=== PATIENT | female | born 1950 | race Caucasian/White ===

== ENCOUNTER 2017-11-08 09:21 | Emergency (ER) | payer OTHER, SELFPAY ==
[2017-11-08 09:26] VITALS: BP 111/84; PULSE 68; RESP 16; TEMP 36.8; O2SAT 95
[2017-11-08] MEDS: Ibuprofen 400 MG TAB PO (09:30)
--- NOTE | 2017-11-08 09:32 | DI.REPORT_ITS ---
SYMPTOM/DIAGNOSIS: STRUCK EDGE OF CHAIR, INJURED RIGHT TOES/LATERAL FOOT RIGHT FOOT: There is a nondisplaced fracture of the proximal phalanx of the 5th toe. No additional fractures are seen. IMPRESSION: Nondisplaced fracture of the mid portion of the proximal phalanx of the 5th toe.
--- NOTE | 2017-11-08 09:36 | ED.GENADUL_ITS ---
Disposition Clinical Impression: Closed fracture of fifth toe of right foot Disposition: HOME Condition: Good Instructions: Toe Fracture (ED) Additional Instructions: Please f/u with Dr. Mullins within 4-6 weeks to assure fracture is healing properly. Sooner if pain and swelling unresolved. Referrals: Josef Mullins DPM [[facility] STAFF PHYSICIAN] - Forms: Work Release Medical Decision Making - Radiology Data Radiology results: report reviewed (Nondisplaced fracture of the mid portion of the proximal phalanx of the 5th toe. ), image reviewed (fracture of proximal phalanx fifth toe. ) - Medical Decision Making Plan to x-ray to evaluate for fracture patient does have history of osteopenia. Will medicate with Ibuprofen. Patient advised to ice and elevate. Patient and daughter apprised of xray impression. Nurse fitted for post op shoe and omar taped fifth toe to adjacent fourth toe. I provided work note for 72 hours to help facilitate plan of care of ice and elevation. Advised to use Ibuprofen for pain. F/U with Dr. Mullins in 4-6 weeks, sooner of symptoms worsen. - Differential Diagnosis contusion, fracture, sprain History of Present Illness - General Chief complaint: Orthopedic Stated complaint: BROKEN TOE? Time Seen by Provider: 11/08/17 09:32 Source: patient, RN notes reviewed Mode of arrival: ambulatory Limitations: no limitations - History of Present Illness Initial comments: 46 while at work she bumped her right pinky toe on the edge of a heavy chair. The force laterally spread the pinky toe causing pain. She physically had to return the fifth toe its normal alignment. Denies any injury. She did take Tylenol prior to arrival. - Related Data Omeprazole 40 mg PO DAILY 01/13/17 Citalopram Hydrobromide [Celexa] 40 mg PO DAILY #90 tab-cap 03/03/17 Estrogens,Conjugated Vag. Cr. [Premarin Vaginal Cream] 1 gm VG as directed #1 each 03/03/17 Ibuprofen 800 mg PO TID PRN #90 tab-cap 03/03/17 Ranitidine HCl [Zantac] 150 mg PO DAILY PRN #90 tab-cap 04/13/17 Clonazepam [Klonopin] 1 mg PO DAILY #30 tab-cap 09/16/17 Allergies Allergy/AdvReac Type Severity Reaction Status Date / Time fentanyl AdvReac Severe NAUSEA/VOMI Unverified 03/21/17 07:08 TING Review of Systems Constitutional: no symptoms reported Musculoskeletal: other (trauma and pain to right fifth toe) Neurological: denies: vertigo Past Medical History - Past Medical History Medical history: hyperlipidemia insomnia, osteopenia L hip, colon polyps Surgical history: other (colocoscopy) Psychiatric history: depression - Social History Alcohol use: none Drug use: none General Exam - General Limitations: no limitations General appearance: alert, in no apparent distress - Expanded Lower Extremity Exam Right Ankle exam: Present: normal inspection, full ROM. Absent: tenderness, swelling Foot/Toe exam: Present: normal inspection, full ROM, tenderness (right fifth toe ), ecchymosis. Absent: swelling, laceration, deformity, erythema, calcaneal tenderness, tenderness at base of 5th metatarsal, nail avulsion, subungual hematoma Neuro vascular tendon exam: Present: no vascular compromise Gait: observed and limited by pain - Neurological Exam Neurological exam: Present: alert, oriented X3. Absent: normal gait (altered from pain) - Psychiatric Psychiatric exam: Present: normal affect, normal mood - Skin Skin exam: Present: warm, dry, intact Course Vital Signs - 24 hr 11/08/17 09:26 Temperature 36.8 C Pulse 68 Respiratory 16 Rate Blood Pressure 111/84 Pulse Oximetry 95
== END 2017-11-08 10:13 | disposition home or self-care (01) ==
PROVIDERS: Emergency Provider Student in an Organized Health Care Education/Training Program; PCP Family Medicine
DX: S92.511A Displaced fracture of proximal phalanx of right lesser toe(s), initial encounter for closed fracture (principal); Y99.0 Civilian activity done for income or pay
CPT/HCPCS: 28510; 73630

== ENCOUNTER 2018-10-05 00:28 | Outpatient (CLI) | payer MEDICARE, OTHER, SELFPAY | END 2018-10-05 00:48 | PROVIDERS: PCP Family Medicine; Visit Provider Family Medicine | DX: R69 Illness, unspecified (principal) ==

== ENCOUNTER 2018-10-10 07:36 | Outpatient (CLI) | payer OTHER, MEDICARE, SELFPAY ==
[2018-10-10 08:06] LABS: HCT 40.5 % (36.0-46.0); HGB 13.3 g/dL (12.0-15.5); Mean Corp. HGB Concentration 32.8 g/dL (32.0-36.0); Mean Corpuscular Hemoglobin 32.2 pg (27.0-33.0); Mean Corpuscular Volume 98.1 fL (80-95); Mean Platelet Volume 10.2 fL (8.0-11.0); Platelet Count 268 x1000/uL (130-400); RBC 4.13 m/cumm (4.00-5.20); RBC Distribution Width 12.6 % (11.7-14.6); White Blood Cell Count 6.34 k/cumm (4.4-10.8)
[2018-10-10 09:15] LABS: ALT 22 U/L (12-78); AST 16 U/L (15-37); Albumin 3.6 g/dL (3.4-5.0); Alkaline Phosphatase 136 U/L (46-116); Anion Gap 9.9 mmol/L (3-11); BUN 19 mg/dL (7-18); Bilirubin, Total 0.2 mg/dL (0.2-1.0); CO2 26.1 mmol/L (21.0-32.0); CREATININE 1.01 mg/dL (0.55-1.02); Calcium 8.7 mg/dL (8.5-10.1); Calculated LDL 196 mg/dL; Chloride 107 mmol/L (98-107); Cholesterol 275 mg/dL (50-200); Estimated GFR 54.67 (mL/min/1.73m2); Glucose 110 mg/dL (70-100); HDL Cholesterol 62 mg/dL (40-60); Potassium 4.5 mmol/L (3.5-5.1); Sodium 143 mmol/L (136-145); Triglyceride 88 mg/dL (30-150)
== END 2018-10-10 07:56 ==
PROVIDERS: PCP Family Medicine; Visit Provider Family Medicine
DX: K21.9 Gastro-esophageal reflux disease without esophagitis (principal); E78.5 Hyperlipidemia, unspecified; F32.9 Major depressive disorder, single episode, unspecified
CPT/HCPCS: 36415; 80053; 80061; 83721; 85027

== ENCOUNTER 2018-10-18 01:03 | Outpatient (CLI) | payer OTHER, MEDICARE, SELFPAY ==
--- NOTE | 2018-10-18 07:17 | DI.MAMMO_ITS ---
SYMPTOMS/DIAGNOSIS: SCREENING, Z12.31 MAMMOGRAM: Mammograms were interpreted according to the usual protocol including computer analysis with CAD system, tomosynthesis and C view imaging. The breast tissue is of moderate radiodensity. There is no evidence of a mass. There are no suspicious calcifications and there has been no significant interval change when compared with prior images. SUMMARY: No evidence of malignancy, Category I, yearly screening mammography is recommended. Breast density Category B. SA ASSESSMENT OF FINDINGS: Negative. Category 1. Patient will receive a letter notifying them of these results. BI-RADS category B. There are scattered areas of fibroglandular density.
== END 2018-10-18 01:23 ==
PROVIDERS: PCP Family Medicine; Visit Provider Family Medicine
DX: Z12.31 Encounter for screening mammogram for malignant neoplasm of breast (principal)
CPT/HCPCS: 77063; 77067

== ENCOUNTER 2018-10-31 01:36 | Outpatient (CLI) | payer OTHER, MEDICARE, SELFPAY ==
--- NOTE | 2018-10-31 15:59 | DI.RAD_ITS ---
SYMPTOMS/DIAGNOSIS: OSTEOPENIA F/U, M85.88 DEXA SCAN WITH ANGELINA: Comparison is made with exams from 2005 through 2008. The ANGELINA image shows no evidence of compression fractures. The bone mineral density measurements of the lumbar spine correspond to a total T score of -2.4, in the osteopenic range. This is not significantly changed from 2008. This represents a 7.3% decrease when compared with 2005. The bone mineral density measurements of the left hip correspond to a total T score of -2.4 and a femoral neck T score of -2.8, in the osteoporotic range. This represents a 4.1% decrease when compared with 2008 and a 9.2% decrease when compared with 2005. The bone mineral density measurements of the left forearm correspond to a total T score of -1.8 and a T score of the distal third of -2.1. This represents a 10.7% decrease when compared with 2008. The forearm was not evaluated in 2005 or 2006. IMPRESSION: Overall osteopenia of the lumbar spine. Osteopenia of the left forearm. Osteoporosis of the left hip.
== END 2018-10-31 01:56 ==
PROVIDERS: PCP Family Medicine; Visit Provider Family Medicine
DX: M85.88 Other specified disorders of bone density and structure, other site (principal); M81.8 Other osteoporosis without current pathological fracture
CPT/HCPCS: 77080

== ENCOUNTER 2019-01-19 00:49 | Outpatient (CLI) | payer OTHER, MEDICARE, SELFPAY ==
[2019-01-19 08:17] LABS: Hemoglobin A1C 5.9 % (4.5-6.2)
[2019-01-19 09:13] LABS: ALT 28 U/L (14-59); AST 16 U/L (15-37); Albumin 3.7 g/dL (3.4-5.0); Alkaline Phosphatase 118 U/L (46-116); Bilirubin, Total 0.5 mg/dL (0.2-1.0); GGT 17 U/L (5-55); TSH (W/Ref FT4) 3.31 uIU/mL (0.36-3.74)
[2019-01-19 09:33] LABS: Bilirubin, Direct 0.12 mg/dL (0.00-0.20)
[2019-01-19 09:48] LABS: ESR 27 mm/hr (0-30)
[2019-01-22 06:33] LABS: Vitamin D 25 Total 18.4 ng/ml (30-100)
== END 2019-01-19 01:09 ==
PROVIDERS: PCP Family Medicine; Visit Provider Family Medicine
DX: R53.83 Other fatigue (principal); R53.81 Other malaise; M81.0 Age-related osteoporosis without current pathological fracture
CPT/HCPCS: 36415; 80076; 82306; 85652; 82977; 83036; 84443

== ENCOUNTER 2019-07-30 02:09 | Outpatient (CLI) | payer OTHER, MEDICARE, SELFPAY ==
[2019-07-30 07:43] LABS: Abs Immature Grans 0.02 k/cumm (0.0-0.09); Absolute Basophil Count 0.03 k/cumm (0.0-0.2); Absolute Eosinophil Count 0.18 k/cumm (0.0-0.7); Absolute Lymphocyte Count 2.77 k/cumm (1.2-3.4); Absolute Monocyte Count 0.55 k/cumm (0.11-0.7); Absolute Neutrophil Count 3.69 k/cumm (1.2-6.7); Basophils % 0.4; Eosinophils % 2.5; HGB 12.7 g/dL (12.0-15.5); Immature Grans % 0.3 %; Lymphocytes % 38.3; Mean Corp. HGB Concentration 32.6 g/dL (32.0-36.0); Mean Corpuscular Hemoglobin 31.7 pg (27.0-33.0); Mean Corpuscular Volume 97.3 fL (80-95); Mean Platelet Volume 10.1 fL (8.0-11.0); Monocytes % 7.6; Neutrophils % 50.9; Platelet Count 267 x1000/uL (130-400); RBC 4.01 m/cumm (4.00-5.20); RBC Distribution Width 12.7 % (11.7-14.6); White Blood Cell Count 7.24 k/cumm (4.4-10.8)
[2019-07-30 08:48] LABS: ALT 32 U/L (14-59); AST 22 U/L (15-37); Albumin 3.6 g/dL (3.4-5.0); Alkaline Phosphatase 111 U/L (46-116); Anion Gap 5.8 mmol/L (3-11); BUN 20 mg/dL (7-18); Bilirubin, Total 0.3 mg/dL (0.2-1.0); CO2 31.2 mmol/L (21.0-32.0); CREATININE 1.18 mg/dL (0.55-1.02); Calcium 8.5 mg/dL (8.5-10.1); Calculated LDL 84 mg/dL (<100); Chloride 104 mmol/L (98-107); Cholesterol 178 mg/dL (<200); Estimated GFR 45.55 (mL/min/1.73m2); Glucose 115 mg/dL (74-106); HDL Cholesterol 80 mg/dL (40-60); Potassium 4.3 mmol/L (3.5-5.1); Sodium 141 mmol/L (136-145); TSH (W/Ref FT4) 3.75 uIU/mL (0.36-3.74); Triglyceride 71 mg/dL (<150)
[2019-07-30 08:57] LABS: Vitamin D 25 Total 46.9 ng/ml (30-100)
[2019-07-30 09:05] LABS: FREE T4 0.83 ng/dL (0.76-1.46)
== END 2019-07-30 02:29 ==
PROVIDERS: PCP Family Medicine; Visit Provider Family Medicine
DX: E55.9 Vitamin D deficiency, unspecified (principal); R53.83 Other fatigue; K21.9 Gastro-esophageal reflux disease without esophagitis; M81.0 Age-related osteoporosis without current pathological fracture
CPT/HCPCS: 36415; 80053; 80061; 82306; 84439; 84443; 85025

== ENCOUNTER 2019-09-14 01:49 | Outpatient (CLI) | payer OTHER, MEDICARE, SELFPAY ==
[2019-09-14 13:21] LABS: Abs Immature Grans 0.02 k/cumm (0.0-0.09); Absolute Basophil Count 0.02 k/cumm (0.0-0.2); Absolute Eosinophil Count 0.11 k/cumm (0.0-0.7); Absolute Lymphocyte Count 2.87 k/cumm (1.2-3.4); Absolute Monocyte Count 0.73 k/cumm (0.11-0.7); Absolute Neutrophil Count 4.24 k/cumm (1.2-6.7); Basophils % 0.3; Eosinophils % 1.4; HCT 36.8 % (36.0-46.0); HGB 12.3 g/dL (12.0-15.5); Immature Grans % 0.3 %; Lymphocytes % 35.9; Mean Corp. HGB Concentration 33.4 g/dL (32.0-36.0); Mean Corpuscular Hemoglobin 32.4 pg (27.0-33.0); Mean Corpuscular Volume 96.8 fL (80-95); Mean Platelet Volume 10.1 fL (8.0-11.0); Monocytes % 9.1; Platelet Count 254 x1000/uL (130-400); RBC Distribution Width 12.4 % (11.7-14.6); White Blood Cell Count 7.99 k/cumm (4.4-10.8)
[2019-09-14 14:17] LABS: ALT 20 U/L (14-59); AST 15 U/L (15-37); Albumin 3.6 g/dL (3.4-5.0); Alkaline Phosphatase 100 U/L (46-116); Anion Gap 9.4 mmol/L (3-11); BUN 16 mg/dL (7-18); Bilirubin, Total 0.3 mg/dL (0.2-1.0); CO2 25.6 mmol/L (21.0-32.0); CREATININE 1.09 mg/dL (0.55-1.02); Calcium 8.9 mg/dL (8.5-10.1); Chloride 105 mmol/L (98-107); Estimated GFR 49.92 (mL/min/1.73m2); Glucose 97 mg/dL (74-106); Potassium 4.1 mmol/L (3.5-5.1); Sodium 140 mmol/L (136-145); TSH 2.12 uIU/mL (0.36-3.74); Total Protein 6.9 g/dL (6.4-8.2)
== END 2019-09-14 02:09 ==
PROVIDERS: PCP Family Medicine; Visit Provider Family Medicine
DX: R73.9 Hyperglycemia, unspecified (principal); R10.9 Unspecified abdominal pain; R53.83 Other fatigue
CPT/HCPCS: 36415; 80053; 83036; 84443; 85025

== ENCOUNTER 2019-10-23 00:54 | Outpatient (CLI) | payer MEDICARE, OTHER, SELFPAY ==
--- NOTE | 2019-10-23 06:00 | DI.MAMMO_ITS ---
EXAM: MG MAMMO SCREENING CLINICAL HISTORY: screening,Z12.31,FAMILY H/O BREAST CA,Z80.3 TECHNIQUE: Mammograms were interpreted according to the usual protocol including computer analysis w [employer] system, tomosynthesis and C-view imaging. COMPARISON: FINDINGS: The breasts are moderate density symmetrical distribution of fibroglandular tissue. No dominant mass or clumped microcalcification is identified in either breast. Current examination is compared with previous examinations including September 2018 and there has been no gross interval change in appearance c omparison with previous studies. IMPRESSION: No specific evidence of malignancy at this time. Routine screening examinations are suggested at yea rly intervals due to the family history of breast carcinoma. BI-RADS Category 1 - Negative Breast Density - Category B - Scattered areas of fibroglandular density
== END 2019-10-23 01:14 ==
PROVIDERS: PCP Family Medicine; Visit Provider Family Medicine
DX: Z12.31 Encounter for screening mammogram for malignant neoplasm of breast (principal); Z80.3 Family history of malignant neoplasm of breast
CPT/HCPCS: 77063; 77067

== ENCOUNTER 2021-01-14 02:41 | Outpatient (CLI) | payer OTHER, MEDICARE, SELFPAY ==
--- NOTE | 2021-01-14 06:45 | DI.MAMMO_ITS ---
Exam(s) MAMMO SCREENING EXAM: MAMMO SCREENING CLINICAL HISTORY: screening,z12.39. TECHNIQUE: Bilateral full field digital CC and MLO mammographic images were obtained with 3D tomosyn thesis and utilizing computer aided detection (CAD). COMPARISON: Prior mammograms dating back to 2010, the most recent being October 2019. FINDINGS: There are no new spiculated masses nor malignant appearing microcalcification groups. There is no significant architectural distortion nor skin thickening-retraction. IMPRESSION: No radiographic evidence of malignancy. BI-RADS Category 1 - Negative Breast Density - Category B - Scattered areas of fibroglandular density Breast density Category C or D implies that the patient has dense breast tissue. Dense breast tissue can make it harder to find cancer on a mammogram. Dense breast tissue is also associated with an incr eased risk of breast cancer. This information about the result of the mammogram report was provided to the patient to raise their awareness. Use this report when you speak with the patient about their risks for breast cancer, which includes their family history. At that time, you may recommend additional screening tests (Ultrasoun d or MRI) as these tests may add significant information. A negative radiographic report should not delay biopsy if a dominant or clinically suspicious mass is present. Up to ten percent of cancers are not identified on mammography. A negative report may reinforce clinical impression. Adenosis and dense breasts may obscure an underlying neoplasm. False positive reports average 6 to 10%. Patient will receive a letter notifying them of these results.
== END 2021-01-14 03:01 ==
PROVIDERS: PCP Family Medicine; Visit Provider Family Medicine
DX: Z12.31 Encounter for screening mammogram for malignant neoplasm of breast (principal)
CPT/HCPCS: 77063; 77067

== ENCOUNTER 2021-01-19 02:47 | Outpatient (CLI) | payer OTHER, MEDICARE, SELFPAY ==
[2021-01-19 16:53] LABS: BUN 21 mg/dL (7-18); Calcium 9.5 mg/dL (8.5-10.1); Chloride 105 mmol/L (98-107); Estimated GFR 54.97 (mL/min/1.73m2); Glucose 110 mg/dL (74-106); Sodium 143 mmol/L (136-145)
[2021-01-19 17:03] LABS: Calculated LDL 77 mg/dL (<100); Cholesterol 192 mg/dL (<200); HDL Cholesterol 80 mg/dL (40-60); Triglyceride 175 mg/dL (<150)
== END 2021-01-19 02:48 | disposition home or self-care (01) ==
LOC: LBO 02:47
PROVIDERS: PCP Family Medicine; Visit Provider Family Medicine
DX: E78.5 Hyperlipidemia, unspecified (principal); R73.9 Hyperglycemia, unspecified; E66.9 Obesity, unspecified; I10 Essential (primary) hypertension
CPT/HCPCS: 36415; 80048; 80061; 83036

== ENCOUNTER 2021-10-02 07:09 | Day surgery (SDC) | payer OTHER, MEDICARE, SELFPAY ==
--- NOTE | 2021-10-01 18:37 | COLE_ITS ---
Colonoscopy Report Date of procedure: 10/02/21 Pre-op diagnosis general: +family hx CRC Post-op diagnosis procedure note: other (normal) Surgeon: Cynthia Thompson Anesthesia Type: General:No Airway Estimated blood loss (mL): 0 Pathology: none sent Complications: None Disposition: same day Prep: Miralax/Dulcolax Retraction Time: 8 Procedure Description: After informed consent was obtained the patient was taken to the procedure room and placed in a left decubitous position. Monitors were applied and a time out was done. The patients name, date of , procedure, allergies to medications and metal in their body was reviewed. The patient was then sedated. Once sedate d and comfortable a rectal exam was done. External exam was normal. Internal exam revealed a normal sphincter tone and no palpable masses. The scope was then introduced and retrofelexed. No internal hemorrhoids were identified. The scope was then advanced to the cecum w/out difficulty. The TI and appendiceal orifice were identified. The prep was BBPS III in otal of 9. The scope was then slowly retracted over 8 minutes back into the rectum. THere are no polyps/AVM's or diverticula visualized today. THe muscosa appears pink and healthy w/ a normal vascular pattern. The scope was removed and the patient was woken up and taken back to Same day surgery in stable condition. The patient tolerated the procedure well and there were no immediate complications. Follow up: The patient should follow up in 5 years ( provided she is still healthy for anaesthesia) unless they develop changes in bowel habits or other new gastrointestinal complaints.
--- NOTE | 2021-10-01 18:38 | PDOC.DSDIS_ITS ---
Discharge Plan Disposition Patient Disposition: HOME Condition: Good Discharge Details Reason For Visit: colon scope Attending Provider: Cynthia Thompson Primary Care Provider: Nadia Stanford Home Meds and New Rx's Prescriptions: No Action ibuprofen [Advil] 200 mg tablet 400 mg PO Q6H PRN clonazepam 1 mg tablet 1 mg PO BID PRN (Reason: anxiety) Qty: 60 2RF rosuvastatin 10 mg tablet 10 mg PO DAILY Qty: 90 3RF citalopram 40 mg tablet 40 mg PO HS pantoprazole 20 mg tablet,delayed release (DR/EC) 20 mg PO HS Discharge Instructions Additional Instructions: DSU Colonoscopy Post- Op Instructions Instructions for Everyone who is given Anesthesia: For your safety, please do the following for the next twenty-four (24) hours: *Do Not operate a motor vehicle (car, truck, motorcycle, etc.) *Do Not drink alcoholic beverages or use any recreational drugs for the first 24 hours or while taking pain medications. The medications in your body may have a reaction that can be dangerous. *Do Not make any important decisions or sign any important papers. Findings: normal Follow up: Repeat in 5 yrs time if still healthy for anethesia 1. No lifting over 20 pounds or strenuous activity for the first 24 hours after your procedure. After 24 hours there are no restrictions on your activity but you may feel fatigued for a few days. 2. After you arrive home you may have a light meal and return to your normal diet as you can tolerate it without feeling sick to your stomach. 3. You may have a bloated, gaseous feeling in your belly (abdomen) after a colonoscopy. Passing gas and belching will help. Walking or lying down on your left side with your knees flexed may relieve the discomfort. Call the office at [phone] (Office) or [phone] (Hospital) right away if you notice any of the following: a.Vomiting of blood or ?coffee ground stools?. b.Rectal bleeding 1Tbsp, blood clots or continuous bleeding. c.Severe belly (abdominal) pain. d.A hard distended belly (abdomen) and an inability to pass gas. 4. Please don?t expect to have a normal BM (bowel movement) for 2-3 days after your procedure. 5. If there are questions regarding the findings of your procedure, please contact your doctor 6. If you are unable to contact your doctor with a problem, contact the hospital at [phone]. 7. Continue all your regular medications unless directed otherwise. I understand the above instructions and have no questions. Signature of Patient or Adult Escort Name of Responsible Adult Escort Signature of Nurse Date/Time Activity:: See above Diet:: See above Discharge Orders Discharge Orders: Discharge Order (Routine); Ordered 10/01/21 Ordered By: Cynthia Thompson
[2021-10-02 07:21] VITALS: BP 133/74; PULSE 78; RESP 16; TEMP 36.6
--- NOTE | 2021-10-02 07:44 | ANES.PREOP_ITS ---
General Info Date of Service Date Performed: 10/02/21 Height: 5 ft 2 in Weight: 84.9 kg Body Mass Index (BMI): 34.2 Surgical Procedure: Operation Date: 10/02/21 08:20 Proposed Procedure Side Surgeon lennox Thompson, DO Meds Allergies and Home Medications Allergies Allergy/AdvReac Type Severity Reaction Status Date / Time fentanyl AdvReac Severe NAUSEA/VOMI Verified 10/02/21 07:18 TING Home Medication Medication Instructions Recorded clonazepam 1 mg tablet 1 mg PO BID PRN anxiety #60 tabs 06/24/21 ibuprofen 200 mg tablet (Advil) 400 mg PO Q6H PRN 09/11/21 rosuvastatin 10 mg tablet 10 mg PO DAILY #90 tabs 09/30/21 citalopram 40 mg tablet 40 mg PO HS 10/01/21 pantoprazole 20 mg tablet,delayed 20 mg PO HS 10/01/21 release Current Visit Medications: Current Medications Generic Name Dose Route Start Last Admin Trade Name Freq PRN Reason Stop Dose Admin Hyoscyamine Sulfate 0.125 mg 10/01/21 18:31 Hyoscyamine 0.125 Mg Sl/Oral/Chew SL DIRECTED PRN Ringer's Solution 1,000 mls @ 80 mls/hr 10/02/21 06:00 IV 10/31/21 23:59 [facility] IV Miscellaneous Supplies 1 each 10/02/21 06:00 Iv Access IV 10/31/21 23:59 DIRECTED MANUEL Ondansetron HCl 4 mg 10/01/21 18:31 Ondansetron 4 Mg/2 Ml Vial IVP Q4H PRN PRN Nausea / Vomiting Sodium Chloride 0 ml 10/02/21 06:00 Normal Saline Flush 10 Ml Syr IV 10/31/21 23:59 PRN PRN Sodium Chloride 0 ml 10/02/21 06:00 Normal Saline 10 Ml Vial IJ 10/31/21 23:59 DIRECTED PRN Sterile Water 0 ml 10/02/21 06:00 Water,Injection,Sterile 10 Ml Vial IJ 10/31/21 23:59 DIRECTED PRN PFSH Active Problems Active Problems: Problem Status Onset Code Family history of colon cancer Z80.0 Screening for colon cancer Z12.11 Medical History Medical History Abnormal glandular Papanicolaou smear of vagina (02/17/06) Chronic ulcerative proctitis Depressive disorder Edema (12/02/11) Family hx-breast malignancy Fatigue GERD (gastroesophageal reflux disease) History of tobacco use Hyperlipidemia Insomnia Joint pain Osteoporosis Polyp of colon Vitamin D deficiency Surgical History Surgical History Colonoscopy - MAC (12/11/10) 2013 Tobacco Smoking/Tobacco Use Status: Former Tobacco Use Second hand exposure: Yes Alcohol Alcohol Intake: current Alcohol intake frequency: a few times a month Alcohol type: beer, wine and hard liquor Substance Use Substance use: Never Substance use type: does not use Vital Signs and Lab Results Vital Signs Most Recent Vital Signs in EMR: Most Recent Vital Signs Temp Pulse Resp BP 36.6 C 78 16 133/74 10/02/21 07:21 10/02/21 07:21 10/02/21 07:21 10/02/21 07:21 Lab Results Blood Type / Crossmatch: No Data to Display Complete Blood Count: No Data to Display Complete Metabolic Panel: No Data to Display Liver Function Panel: No Data to Display Coagulation Panel: No Data to Display Cardiac Panel: No Data to Display Arterial Blood Gas: No Data to Display Venous Blood Gas: No Data to Display Pancreas Panel: No Data to Display Thyroid Panel: No Data to Display Infectious Disease: No Data to Display Blood Cultures: No Data to Display Toxicology Panel: No Data to Display Anesthesia Assessment and Plan Anesthesia History Personal History: No History of Anesthesia Complications Family History: No Family History of Anesthesia Complications Exercise Tolerance Exercise Tolerance: Metabolic Equivalents>4 Pertinent Negatives Pertinent Negatives: No Symptoms of GERD (Well controlled), No Major Cardiovascular Symptoms or Complaints, No Major Pulmonary Symptoms or Complaints and No History of CVA/TIA Cardiac & Pulmonary Exam Cardiac Exam: Normal S1/S2 Heart Sounds Pulmonary Exam: Clear Bilateral Breath Sounds Implantable Cardiac Device Does patient have a Pacemaker or an ICD?: No Airway Exam Known Difficult Airway: No Mallampati Class: 2 Mouth Opening: Normal (> 3cm) Thyromental Distance: Greater than 3 cm Neck Range of Motion: Full ROM Neck Circumference: Normal Teeth Condition: Normal Dentition ASA Classification ASA Score: ASA 2 Emergency Case?: No NPO Status NPO Status: NPO Clears >2 hours, Solids >8 hours Anesthesia Plan Resuscitation Status: Full Code Anesthesia Technique: General Anesthesia Airway Planned: Natural Airway Monitors Used: Standard Monitors
[2021-10-02] MEDS: Lactated Ringers 1,000 ML 80 ML IV (07:50)
[2021-10-02 08:30] VITALS: BMI 34.2
[2021-10-02 09:33] VITALS: BP 92/49; PULSE 86; RESP 14; TEMP 36.5; O2SAT 91
[2021-10-02 10:00] VITALS: BP 105/76; PULSE 65; RESP 14; TEMP 36.5; O2SAT 91
--- NOTE | 2021-10-02 10:05 | W.ANESPOSTOP ---
Postoperative Evaluation Date, Time and Location Date Performed: 10/02/21 Time Performed: 09:46 Patient Location: Day Surgery Unit Vital Signs Most Recent Imported Vital Signs: Most Recent Vital Signs Temp Pulse Resp BP Pulse Ox 36.5 C 65 14 105/76 91 L 10/02/21 10:00 10/02/21 10:00 10/02/21 10:00 10/02/21 10:00 10/02/21 10:00 Pain Score Most Recent Pain Score: Most Recent Pain Score Pain Level 0 10/02/21 10:00 Assessment Mental Status: Awake (Alert & Oriented to Patient Baseline) Airway and Respiratory Function: Patent airway with normal (patient baseline) respiratory exam Cardiovascular Function: Hemodynamically Stable Hydration Status: Adequately Hydrated Nausea & Vomiting: No Nausea or Vomiting Pain: Pt. Denies Any Pain Peripheral Nerve Block: Patient did not receive a nerve block
[2021-10-02 10:28] VITALS: BP 104/75; PULSE 66; RESP 16; TEMP 36.5; O2SAT 94
== END 2021-10-02 11:04 | disposition home or self-care (01) ==
LOC: SUR 07:10
PROVIDERS: PCP Family Medicine; Visit Provider Surgery
PROC: 0DJD8ZZ Inspection of Lower Intestinal Tract, Via Natural or Artificial Opening Endoscopic (ICD-10-PCS; CPT 45378; principal; 2021-10-02 08:15)
DX: Z12.11 Encounter for screening for malignant neoplasm of colon (principal); Z80.0 Family history of malignant neoplasm of digestive organs; E55.9 Vitamin D deficiency, unspecified; E78.5 Hyperlipidemia, unspecified
CPT/HCPCS: G0105

== ENCOUNTER 2022-01-12 02:35 | Outpatient (CLI) | payer OTHER, MEDICARE, SELFPAY ==
[2022-01-12 11:15] LABS: BUN 16 mg/dL (7-18); CREATININE 1.1 mg/dL (0.55-1.02); Calcium 9.2 mg/dL (8.5-10.1); Calculated LDL 133 mg/dL (<100); Chloride 105 mmol/L (98-107); Cholesterol 216 mg/dL (<200); Estimated GFR 54.06 (mL/min/1.73m2); Glucose 111 mg/dL (74-106); HDL Cholesterol 61 mg/dL (40-60); Sodium 140 mmol/L (136-145); TSH (W/Ref FT4) 2.35 uIU/mL (0.36-3.74); Triglyceride 113 mg/dL (<150); Vitamin B12 291 pg/mL (193-986)
[2022-01-13 10:22] LABS: Vitamin D 25 Total 39.4 ng/mL (30-100)
== END 2022-01-12 02:36 | disposition home or self-care (01) ==
LOC: LBO 02:36
PROVIDERS: PCP Family Medicine; Visit Provider Family Medicine
DX: M81.0 Age-related osteoporosis without current pathological fracture (principal); E03.9 Hypothyroidism, unspecified; G62.9 Polyneuropathy, unspecified; E66.9 Obesity, unspecified; I10 Essential (primary) hypertension; E78.2 Mixed hyperlipidemia; Z13.6 Encounter for screening for cardiovascular disorders
CPT/HCPCS: 36415; 80048; 80061; 82306; 82607; 84443

== ENCOUNTER → 2022-02-12 00:07 | Outpatient (CLI) | payer OTHER, MEDICARE, SELFPAY ==
--- NOTE | 2022-02-12 13:11 | DI.DEXA_ITS ---
Exam(s) XR DEXA BONE DENSITY W/WO ANGELINA EXAM: XR DEXA BONE DENSITY W/WO ANGELINA CLINICAL HISTORY: osteoporosis M81.0 SCREENING TECHNIQUE: COMPARISON: No exams were available for comparison FINDINGS: DEXA scan was performed according to the usual protocol. Please see the accompanying data sheets. Findings for left hip scanning are T-score -2.0 with left femoral neck T-score -2.7. Prior examinati on of October 2018 showed left hip T-score -2.4. Lumbar spine scanning shows T-score -2.5, prior examination of October 2018 showed lumbar T-score -2. 4. Left forearm scanning shows T-score -2.4, prior examination of 2018 showed left forearm T-score -2.1. IMPRESSION: The measurements are consistent with osteoporosis according to the WHO criteria. The lateral vertebr al scanogram shows no evidence of a vertebral compression fracture. RADIATION DOSE DELIVERED: Total DLP
== END ==
PROVIDERS: PCP Family Medicine; Visit Provider Family Medicine
DX: M81.0 Age-related osteoporosis without current pathological fracture (principal); Z13.820 Encounter for screening for osteoporosis
CPT/HCPCS: 77080

== ENCOUNTER 2022-11-11 20:20 | Emergency (ER) | payer OTHER, MEDICARE, SELFPAY ==
--- NOTE | 2022-11-11 20:15 | DI.RAD_ITS ---
Exam(s) XR KNEE RT 3V AP,LAT,TIMBO EXAM: XR KNEE RT 3V AP,LAT,TIMBO CLINICAL HISTORY: fall, pain at prox fib and lateral tib plat. TECHNIQUE: 2D digital imaging was performed of the right knee. Three views obtained. AP, lateral an d PA tunnel views were obtained. COMPARISON: No priors for comparison. FINDINGS: BONES: No acute fracture is present. No bony destructive lesion is seen. JOINTS: The knee is normally aligned. No joint effusion is seen. SOFT TISSUE: Normal. IMPRESSION: Unremarkable radiographs of the right knee. DATA REPOSITORY: RADIATION DOSE DELIVERED:
--- NOTE | 2022-11-11 20:15 | DI.RAD_ITS ---
Exam(s) XR CHEST 2V PA LATERAL EXAM: XR CHEST 2V PA LATERAL CLINICAL HISTORY: fall, right lateral rib pain at rib 6-8 TECHNIQUE: 2D digital imaging was performed of the chest. Two images were obtained. PA and lateral views were obtained. COMPARISON: CR CHEST 2 VIEWS PA,LAT from 11/25/2011 FINDINGS: MEDIASTINUM: Normal. HEART: Normal. PULMONARY VASCULATURE: Normal. LUNGS: Clear. PLEURAL SPACE: No pleural effusion or pneumothorax. BONE:Within normal limits for the patient's age. OTHER FINDINGS:Normal. IMPRESSION: 1. No acute pulmonary findings. 2. If there are continued concerns for rib fracture, a dedicated right rib examination may be obtaine d. DATA REPOSITORY: RADIATION DOSE DELIVERED:
--- NOTE | 2022-11-11 20:15 | DI.CT_ITS ---
Exam(s) CT HEAD FACIAL WO EXAM: CT HEAD FACIAL WO CLINICAL HISTORY: fall, hit right orbit, r/o bleed. TECHNIQUE: Imaging Protocol: Axial computed tomography images with coronal and sagittal reformatted images were created and reviewed COMPARISON: CT HEAD WITHOUT CONTRAST from 08/06/2009 FINDINGS: CT Head: Ventricles and Extra axial spaces: Normal in size and morphology for the patient's age. Hemorrhage: None. Cerebral parenchyma: Normal. Midline shift: None. Brainstem/Cerebellum: Normal. Calvarium: Normal. Visualized Paranasal sinuses/Mastoids: Clear. Soft Tissues: Unremarkable. CT Face: Facial Bones: No definite fracture is noted in facial bones. Sinuses and Mastoids: Unremarkable. Globes, extraocular muscles, optic nerves and retrobulbar fat: Normal. Upper aerodigestive tract: Normal. Mandible and bilateral temporomandibular joints: Normal. Soft tissues: Normal. IMPRESSION: 1. No acute intracranial process. 2. No acute facial fracture. RADIATION DOSE DELIVERED: 1,511.04mGy.cm Total DLP DATA REPOSITORY: All CT scans at this facility are submitted to the National Radiology Data Registry (NRDR) Dose Index Registry (DIR) with the [employer] (A[employer]). RADIATION OPTIMIZATION: All CT scans at this facility use at least one of these dose optimization te chniques: automated exposure control; mA and/or kV adjustment per patient size (includes targeted exa ms where dose is matched to clinical indication); or iterative reconstruction.
[2022-11-11 20:25] VITALS: BP 127/75; PULSE 87; RESP 15; TEMP 36.6; O2SAT 96
--- NOTE | 2022-11-11 20:29 | DI.RAD_ITS ---
Exam(s) XR FOOT RT COMPLETE EXAM: XR FOOT RT COMPLETE CLINICAL HISTORY: tenderness at 3-5th MTP joint after fall. TECHNIQUE: 2D digital imaging was performed of the right foot. Three images were obtained. AP, obl ique and lateral views were obtained. COMPARISON: CR RIGHT FOOT COMPLETE from 11/08/2017 FINDINGS: BONES: There is an acute mildly displaced fracture through the distal metadiaphyseal junction of the proximal phalanx of the 4th toe. There is also cortical irregularity through the midshaft of the pro ximal phalanx of the 5th toe concerning for nondisplaced fracture. No bony destructive lesion is see n. JOINTS: No dislocation present. SOFT TISSUE: There is soft tissue swelling of the distal foot. IMPRESSION: 1. Acute mildly displaced fracture involving the proximal phalanx of the 4th toe. 2. Question of a nondisplaced fracture involving the proximal phalanx of the 5th toe. DATA REPOSITORY: RADIATION DOSE DELIVERED:
[2022-11-11] MEDS: Acetaminophen 500 MG TAB 1000 MG PO (20:35)
--- NOTE | 2022-11-11 20:35 | W.ED.GENAD ---
Discharge Plan Disposition Patient Disposition: Home Condition: Good Discharge Details Chief Complaint: Fall/Non TraumaCriteria Clinical Impression: Fracture of right toe Primary Care Provider: Nadia Stanford ED Provider: Suresh Rob Home Meds and New Rx's Prescriptions: No Action ibuprofen [Advil] 200 mg tablet 400 mg PO Q6H PRN acyclovir 400 mg tablet 400 mg PO BID Qty: 180 3RF citalopram 40 mg tablet 40 mg PO HS Qty: 90 3RF pantoprazole 20 mg tablet,delayed release (DR/EC) 20 mg PO HS Qty: 90 3RF rosuvastatin 10 mg tablet 10 mg PO DAILY Qty: 90 3RF clonazepam 1 mg tablet 1 mg PO QHS Qty: 30 2RF Discharge Instructions Instructions: Toe Fracture (ED) Additional Instructions: At this time your ribs are bruised, and your knee is certainly bruised. You also do have a small fracture in your fourth toe on the right foot. This will heal with time. Keep it omar taped for the next 2 to 3 weeks. Please use the walking boot to help with healing process for the next 1 to 2 weeks. Take Tylenol and Motrin as needed for pain. If you notice any worsening of your symptoms, or any new symptoms such as vomiting, diarrhea, fever, chills, shortness of breath, chest pain, numbness, weakness, or fainting , please return immediately to the emergency department for reevaluation. Please follow up with your primary care provider as soon as possible for reassessment and reevaluation. As always, it was a pleasure participating in your medical care today. Referrals: Nadia Stanford MD [Primary Care Provider] - Medical Decision Making 72-year-old female with a past medical history of osteoporosis, high cholesterol, GERD, chronic mild peripheral edema, who presents today for evaluation after a fall. Patient states that she was walking on a cement walkway when her sandal folded in on itself and she subsequently fell forward and tripped. She hit her right brow, right chest, right knee, and right toes. She has pain in all the subsequent areas. She denies any loss of consciousness. No numbness or tingling. No weakness otherwise. She is not on any blood thinners. No other complaints at this time. Symptoms are made worse with movement. Improved by nothing. Exam demonstrates bruising and tenderness over the right brow, bruising and tenderness of the right knee and right MCP joints of the third fourth and fifth digits on the right foot. No midline cervical thoracic lumbar spine tenderness. No other tenderness otherwise aside from mild right-sided rib tenderness. No other concerning abnormalities. We will get radiographic imaging of the following areas for evaluation of potential osseous injury. Will give Tylenol, monitor closely and reassess. 9:[address] scan of the head knee chest No acute process. X-ray of the foot was initially read as negative. I did have concern for fracture of the fourth toe, did contact radiology and they concur with this point on the reassessment and addendum. Patient's toe was omar taped, she was given a walking boot for home. Recommend continued NSAIDs at home. Discussed red flags for which to return. I have extensively reviewed the treatment plan and discharge instructions with the patient and their family. I have addressed all patient concerns at this time. The patient and family was made aware of what symptoms to monitor for that would warrant a return to the emergency department. Discussed the plan with the patient and family, they demonstrate verbal understanding and agreement with our assessment and plan at this time. The documentation in this chart was dictated using [employer] dictation software. Please excuse any dictation errors. FINDINGS: Brain: Moderate volume loss No hemorrhage. Unremarkable white matter. No mass effect. Cerebral ventricles: No ventriculomegaly. Paranasal sinuses: Visualized sinuses are unremarkable. No fluid levels. Mastoid air cells: Visualized mastoid air cells are well aerated. Bones/joints: Unremarkable. No acute fracture. Soft tissues: Unremarkable. IMPRESSION: No acute intracranial abnormality FINDINGS: Orbital cavities: Orbits are normal. Globes are unremarkable. Bones/joints: No acute fracture. Paranasal sinuses: Normal. No air-fluid levels. Soft tissues: Unremarkable. IMPRESSION: No acute findings. Thank you for allowing us to participate in the care of your patient. Dictated and Authenticated by: Mg Tavarez MD 11/11/2022 8:57 PM Eastern Time ([place] & [place]) FINDINGS: Lungs: Unremarkable. No consolidation. Pleural spaces: Unremarkable. No pleural effusion. No pneumothorax. Heart/Mediastinum: Unremarkable. No cardiomegaly. Bones/joints: Unremarkable. IMPRESSION: No acute findings. Thank you for allowing us to participate in the care of your patient. Dictated and Authenticated by: Mg Tavarez MD 11/11/2022 8:57 PM Eastern Time ([place] & [place]) FINDINGS: Bones/joints: No acute fracture or dislocation Soft tissues: Normal. IMPRESSION: No acute findings. Thank you for allowing us to participate in the care of your patient. Dictated and Authenticated by: Mg Tavarez MD 11/11/2022 8:56 PM Eastern Time ([place] & [place]) Addendum created by Mg Tavarez MD on 11/11/2022 9:13 PM Eastern Time ([place] & [place]): Mild swelling of the 4th toe. Mild irregularity/fracture of the distal 4th proximal phalanx on the oblique view The findings were verbally communicated via telephone conference with SURESH ROB at 9:13 PM EDT on 11/11/2022. The findings were acknowledged and understood. Initial Report created on 11/11/2022 9:00 PM Eastern Time ([place] & [place]): PROCEDURE INFORMATION: Exam: XR Right Foot Exam date and time: 11/11/2022 8:56 PM Age: 72 years old Clinical indication: Injury or trauma; Fall; Blunt trauma; Foot; Right; Additional info: Tenderness at 3- 5th mtp joint after fall TECHNIQUE: Imaging protocol: Radiologic exam of the right foot. Views: 3 or more views. COMPARISON: CR RIGHT FOOT COMPLETE 11/08/2017 9:37 AM FINDINGS: Bones/joints: Chronic ossicle adjacent to the cuboid. No acute fracture or dislocation. Soft tissues: Normal. IMPRESSION: No acute findings. Thank you for allowing us to participate in the care of your patient. HPI General Date/Time Provider Initiated Documentation: 11/11/22 20:23. HPI Narrative: 72-year-old female with a past medical history of osteoporosis, high cholesterol, GERD, chronic mild peripheral edema, who presents today for evaluation after a fall. Patient states that she was walking on a cement walkway when her sandal folded in on itself and she subsequently fell forward and tripped. She hit her right brow, right chest, right knee, and right toes. She has pain in all the subsequent areas. She denies any loss of consciousness. No numbness or tingling. No weakness otherwise. She is not on any blood thinners. No other complaints at this time. Symptoms are made worse with movement. Improved by nothing. Related Data Home Medications Medication Instructions Recorded Confirmed ibuprofen 200 mg tablet (Advil) 400 mg PO Q6H PRN 09/11/21 08/06/22 citalopram 40 mg tablet 40 mg PO HS #90 tabs 01/01/22 08/06/22 pantoprazole 20 mg tablet,delayed 20 mg PO HS #90 tabs 01/01/22 08/06/22 release rosuvastatin 10 mg tablet 10 mg PO DAILY #90 tabs 05/06/22 08/06/22 acyclovir 400 mg tablet 400 mg PO BID #180 tabs 08/06/22 08/06/22 clonazepam 1 mg tablet 1 mg PO QHS anxiety #30 tabs 10/14/22 Previous Rx's Medication Instructions Recorded citalopram 40 mg tablet 40 mg PO HS #90 tabs 01/01/22 pantoprazole 20 mg tablet,delayed 20 mg PO HS #90 tabs 01/01/22 release rosuvastatin 10 mg tablet 10 mg PO DAILY #90 tabs 05/06/22 acyclovir 400 mg tablet 400 mg PO BID #180 tabs 08/06/22 clonazepam 1 mg tablet 1 mg PO QHS anxiety #30 tabs 10/14/22 Allergies Allergy/AdvReac Type Severity Reaction Status Date / Time fentanyl AdvReac Severe NAUSEA/VOMI Verified 08/06/22 09:06 TING General Stated Complaint: Fall/Non TraumaCriteria LYNSEY: 4 Review of Systems All systems reviewed & are unremarkable except as noted in HPI and below PFSH All Active Problems (Updated 11/11/22 @ 21:21 by Suresh Rob DO) Depressive disorder (Chronic) 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 Insomnia Joint pain Polyp of colon Family History Mother , 82 Colon cancer Father , 82 Colon cancer Brother Hyperlipidemia Maternal Grandfather Lung cancer Paternal Grandfather Diabetes Maternal Grandmother Essential hypertension Paternal Grandmother Essential hypertension Social History Smoking/Tobacco Use Status: Former Tobacco Use tobacco type: cigarettes Quit Date: 03/21/19 Second Hand Exposure: Yes Smoking risk assessment performed?: Yes Alcohol Intake: current Alcohol Intake frequency: a few times a month Alcohol type: beer, wine and hard liquor Drug use: Never Substance use type: does not use Caregiver/Support person: No Household members: none Housing: house Number of Children: 1 number of grandchildren: 1 Communication Needs: None Do you need help understanding health information?: Rarely 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 Pets and animals: No Sexually active: No Do you think of yourself as: straight/heterosexual Current gender identity: female What is your relationship status?: How often do you get together with friends or relatives?: three or more times per week How often do you attend protestant or judaism services?: decline to answer Do you belong to any clubs or organized social groups?: no Panel score (0-1 are the most socially isolated patients): 1 Duration: < 15 minutes/day Special deepika needs: No Seatbelt use: always Helmet use: Yes Helmet use: always Drive intox or ride w/intox 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 3.ENT: Atraumatic external nose and ears. Moist MM. Neck: Symmetric, trachea midline, No thyromegaly. There is no evidence of raccoon eyes, frank sign, CSF rhinorrhea, mastoid tenderness, cranial crepitus, , exophthalmos, or hyphema. Patient demonstrates intact dentition with no signs of tooth avulsion or fracture, no signs of jaw deformity, no evidence of a LeFort's fracture, with an intact palate, nose and orbital region. There is no evidence of a nasal septal hematoma. No proptosis. Jaw closes symmetrically. Airway is clear. There is minimal bruising tenderness over the right lateral orbit 4.CVS: +S1/S2, No murmurs or gallops. Peripheral pulses 2+ and equal in all extremities. Brisk capillary refill in all extremities. 5.RESP: Unlabored respiratory effort. Clear to auscultation bilaterally. No wheezes rales or rhonchi. Minimal tenderness over the right ribs. 6.GI: Soft, Nontender/Nondistended, No hepatosplenomegaly. No guarding or rebound. 7.MSK: Patient demonstrates mild bruising and tenderness over the right knee, the fifth digit on the right foot, minimal tenderness of the right ribs. No hip tenderness, no tenderness in the right upper extremity left upper extremity or left lower extremity. No other bony tenderness throughout. Right knee: The knee is stable to varus, valgus, and anterior drawer stress. No deformity. Patellar grind test is negative. Kiara test is negative for pain. Patient is able to walk without difficulty. No edema or warmth to the joint. Minimal tenderness over the proximal fibula, and the lateral aspect of the tibia. 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 Sensation grossly intact, no focal neurologic deficits. 10.Psych: (AAO) x3. Appropriate mood and affect Course Vital Signs Vital signs: Vital Signs Temperature 36.6 C 11/11/22 20:25 Pulse 87 11/11/22 20:25 Respiratory Rate 15 11/11/22 20:25 Blood Pressure 127/75 11/11/22 20:25 Pulse Oximetry 96 11/11/22 20:25 Temperature 36.6 C 11/11/22 20:25 Pulse 87 11/11/22 20:25 Respiratory Rate 15 11/11/22 20:25 Respiratory Effort Normal 11/11/22 20:28 Blood Pressure 127/75 11/11/22 20:25 Pulse Oximetry 96 11/11/22 20:25 Oxygen Delivery Method Room Air 11/11/22 20:25 Oxygen Flow Rate 0 11/11/22 20:25
--- NOTE | 2022-11-11 20:56 | DI.VRAD_ITS ---
PROCEDURE INFORMATION: Exam: XR Right Knee Exam date and time: 11/11/2022 8:51 PM Age: 72 years old Clinical indication: Injury or trauma; Fall; Blunt trauma; Knee; Right; Additional info: Fall, pain at prox fib and lateral tib plat TECHNIQUE: Imaging protocol: Radiologic exam of the right knee. Views: 3 views. COMPARISON: CR RIGHT FOOT COMPLETE 11/08/2017 9:37 AM FINDINGS: Bones/joints: No acute fracture or dislocation Soft tissues: Normal. IMPRESSION: No acute findings. Dictated and Authenticated by: Mg Tavarez MD. Ordering:KEN Prince MD
--- NOTE | 2022-11-11 20:57 | DI.VRAD_ITS ---
PROCEDURE INFORMATION: Exam: XR Chest Exam date and time: 11/11/2022 8:48 PM Age: 72 years old Clinical indication: Injury or trauma; Fall; Blunt trauma (contusions or hematomas); Additional info: Fall, right lateral rib pain at rib 6-8 TECHNIQUE: Imaging protocol: Radiologic exam of the chest. Views: 2 views. COMPARISON: No relevant prior studies available. FINDINGS: Lungs: Unremarkable. No consolidation. Pleural spaces: Unremarkable. No pleural effusion. No pneumothorax. Heart/Mediastinum: Unremarkable. No cardiomegaly. Bones/joints: Unremarkable. IMPRESSION: No acute findings. Dictated and Authenticated by: gM Tavarez MD. Ordering:KEN Prince MD
--- NOTE | 2022-11-11 20:57 | DI.VRAD_ITS ---
PROCEDURE INFORMATION: Exam: CT Head Without Contrast Exam date and time: 11/11/2022 8:44 PM Age: 72 years old Clinical indication: Injury or trauma; Blunt trauma (contusions or hematomas) and concussion/head injury; Without loss of consciousness; Forehead; Injury details: Fall, hit right orbit, R/O bleed TECHNIQUE: Imaging protocol: Computed tomography of the head without contrast. Radiation optimization: All CT scans at this facility use at least one of these dose optimization techniques: automated exposure control; mA and/or kV adjustment per patient size (includes targeted exams where dose is matched to clinical indication); or iterative reconstruction. COMPARISON: No relevant prior studies available. FINDINGS: Brain: Moderate volume loss No hemorrhage. Unremarkable white matter. No mass effect. Cerebral ventricles: No ventriculomegaly. Paranasal sinuses: Visualized sinuses are unremarkable. No fluid levels. Mastoid air cells: Visualized mastoid air cells are well aerated. Bones/joints: Unremarkable. No acute fracture. Soft tissues: Unremarkable. IMPRESSION: No acute intracranial abnormality. PROCEDURE INFORMATION: Exam: CT Maxillofacial Without Contrast Exam date and time: 11/11/2022 8:44 PM Age: 72 years old Clinical indication: Injury or trauma; Blunt trauma (contusions or hematomas) and concussion/head injury; Without loss of consciousness; Forehead; Injury details: Fall, hit right orbit, R/O bleed TECHNIQUE: Imaging protocol: Computed tomography of the face without contrast. Radiation optimization: All CT scans at this facility use at least one of these dose optimization techniques: automated exposure control; mA and/or kV adjustment per patient size (includes targeted exams where dose is matched to clinical indication); or iterative reconstruction. COMPARISON: No relevant prior studies available. FINDINGS: Orbital cavities: Orbits are normal. Globes are unremarkable. Bones/joints: No acute fracture. Paranasal sinuses: Normal. No air-fluid levels. Soft tissues: Unremarkable. IMPRESSION: No acute findings. Dictated and Authenticated by: Mg Tavarez MD. Ordering:KEN Prince MD
--- NOTE | 2022-11-11 21:00 | DI.VRAD_ITS ---
Addendum created by Mg Tavarez MD on 11/11/2022 9:13:36 PM EDT: Mild swelling of the 4th toe. Mild irregularity/fracture of the distal 4th proximal phalanx on the oblique view The findings were verbally communicated via telephone conference with TOSHIA ROB at 9:13 PM EDT on 11/11/2022. The findings were acknowledged and understood. Initial report created on 11/11/2022 9:00:02 PM EDT: PROCEDURE INFORMATION: Exam: XR Right Foot Exam date and time: 11/11/2022 8:56 PM Age: 72 years old Clinical indication: Injury or trauma; Fall; Blunt trauma; Foot; Right; Additional info: Tenderness at 3-5th mtp joint after fall TECHNIQUE: Imaging protocol: Radiologic exam of the right foot. Views: 3 or more views. COMPARISON: CR RIGHT FOOT COMPLETE 11/08/2017 9:37 AM FINDINGS: Bones/joints: Chronic ossicle adjacent to the cuboid. No acute fracture or dislocation. Soft tissues: Normal. IMPRESSION: No acute findings. Dictated and Authenticated by: Mg Tavarez MD. Ordering:KEN Prince MD
--- NOTE | 2022-11-18 17:02 | NUR.NOTE ---
Accessed chart for provider note to fax to [facility] for billing. Nursing Note:
== END 2022-11-11 21:34 | disposition home or self-care (01) ==
PROVIDERS: Emergency Provider Student in an Organized Health Care Education/Training Program; PCP Family Medicine
DX: S92.911A Unspecified fracture of right toe(s), initial encounter for closed fracture (principal); X58.XXXA Exposure to other specified factors, initial encounter
CPT/HCPCS: 73562; 99284; 70450; 70486; 71046; 73630; 99283

== ENCOUNTER 2023-01-04 02:29 | Outpatient (CLI) | payer OTHER, MEDICARE, SELFPAY ==
[2023-01-04 10:36] LABS: BUN 23 mg/dL (7-18); Calcium 9.4 mg/dL (8.5-10.1); Calculated LDL 71 mg/dL (<100); Chloride 105 mmol/L (98-107); Cholesterol 163 mg/dL (<200); Estimated GFR 60.23 (mL/min/1.73m2); Glucose 107 mg/dL (74-106); HDL Cholesterol 81 mg/dL (40-60); Potassium 4.1 mmol/L (3.5-5.1); Sodium 140 mmol/L (136-145); Triglyceride 59 mg/dL (<150)
[2023-01-04 11:32] LABS: Hemoglobin A1C 5.9 % (<5.7)
== END 2023-01-04 02:30 | disposition home or self-care (01) ==
LOC: LBO 02:29
PROVIDERS: PCP Family Medicine; Visit Provider Family Medicine
DX: I10 Essential (primary) hypertension (principal); E78.5 Hyperlipidemia, unspecified; R73.01 Impaired fasting glucose; E66.8 Other obesity
CPT/HCPCS: 36415; 80048; 80061; 83036

== ENCOUNTER → 2023-01-25 00:38 | Outpatient (CLI) | payer OTHER, MEDICARE, SELFPAY | PROVIDERS: PCP Family Medicine; Visit Provider Family Medicine | DX: Z12.31 Encounter for screening mammogram for malignant neoplasm of breast (principal); R92.323 Mammographic fibroglandular density, bilateral breasts | CPT/HCPCS: 77063; 77067 ==

== ENCOUNTER 2023-06-14 05:23 | Outpatient (CLI) | payer OTHER, MEDICARE, SELFPAY ==
[2023-06-14 14:25] LABS: HCT 38.5 % (36.0-46.0); HGB 12.1 g/dL (11.2-15.7); MCH 31.5 pg (27.0-33.0); MCHC 31.4 % (32.0-36.0); MCV 100 fL (80-95); MPV 10.2 fL (8.0-11.0); Platelet Count 224 10^3/uL (130-400); RBC 3.84 10^6/uL (3.93-5.22); RDW 13.1 % (11.7-14.6); RDW-SD 48.7 fL; WBC 9.75 10^3/uL (4.4-10.8)
[2023-06-14 15:13] LABS: Ferritin 81 ng/mL (8-252)
[2023-06-14 20:43] LABS: Vitamin D 25 Total 31.2 ng/mL (30-100)
[2023-06-15 17:55] LABS: Lab Add On Test DONE
[2023-06-15 18:36] LABS: Vitamin B12 383 pg/mL (193-986)
== END 2023-06-14 05:24 | disposition home or self-care (01) ==
LOC: LBO 05:23
PROVIDERS: PCP Family Medicine; Visit Provider Family Medicine
DX: D75.89 Other specified diseases of blood and blood-forming organs (principal); R45.1 Restlessness and agitation; F32.89 Other specified depressive episodes; E66.8 Other obesity; Z79.899 Other long term (current) drug therapy
CPT/HCPCS: 36415; 82306; 85027; 82607; 82728

== ENCOUNTER 2023-12-28 14:36 | Outpatient (CLI) | payer BC, MEDICARE, SELFPAY ==
[2023-12-28 14:36] LABS: Abs Immature Grans 0.02 10^3/uL (0.0-0.06); Absolute Basophil Count 0.05 10^3/uL (0.0-0.2); Absolute Eosinophil Count 0.13 10^3/uL (0.0-0.7); Absolute Lymphocyte Count 2.59 10^3/uL (1.2-3.4); Absolute Monocyte Count 0.58 10^3/uL (0.1-0.8); Absolute Neutrophil Count 3.37 10^3/uL (1.2-6.7); Basophils % 0.7 %; Eosinophils % 1.9 %; HGB 12.5 g/dL (11.2-15.7); Immature Grans % 0.3 %; Lymphocytes % 38.4 %; MCH 31.8 pg (27.0-33.0); MCHC 32.1 % (32.0-36.0); MCV 99 fL (80-95); Monocytes % 8.6 %; Neutrophils % 50.1 %; Platelet Count 242 10^3/uL (130-400); RBC 3.93 10^6/uL (3.93-5.22); RDW 12.8 % (11.7-14.6); WBC 6.74 10^3/uL (4.4-10.8)
[2023-12-28 14:38] LABS: Bilirubin Negative (Negative); Blood Negative (Negative); Clarity Clear (Clear); Glucose Negative (Negative); Ketones Negative (Negative); Leukocyte Esterase Moderate (Negative); Nitrite Negative (Negative); Urobilinogen 0.2 mg/dL (Up to 0.2); pH 5.5 (5-8)
[2023-12-28 14:55] LABS: Bacteria Few HPF (Negative); C & S Indicated? No/Sq. Contamination; Casts Negative LPF (Negative); Crystals Negative HPF (Negative); Epithelial Cells Many HPF (Negative); Mucus Trace (Negative); Other Cells Negative (Negative); RBC 0-2 HPF (0-2)
[2023-12-28 15:45] LABS: ALT 23 U/L (14-59); AST 16 U/L (15-37); Albumin 3.6 g/dL (3.4-5.0); Alkaline Phosphatase 124 U/L (46-116); Anion Gap 7.2 mmol/L (3-11); BUN 16 mg/dL (7-18); Bilirubin, Total 0.34 mg/dL (0.2-1.0); CO2 28.8 mmol/L (21.0-32.0); CREATININE 1.1 mg/dL (0.55-1.02); Calcium 9.3 mg/dL (8.5-10.1); Chloride 109 mmol/L (98-107); Estimated GFR 53.39 (mL/min/1.73m2); Glucose 102 mg/dL (74-106); Potassium 4.1 mmol/L (3.5-5.1); Sodium 145 mmol/L (136-145); TSH (W/Ref FT4) 3.06 uIU/mL (0.36-3.74); Total Protein 7.7 g/dL (6.4-8.2)
[2023-12-28 23:09] LABS: Hepatitis C Ab w Rflx HCV PCR Negative (Negative)
== END 2023-12-28 14:37 | disposition home or self-care (01) ==
LOC: LBO 14:37
PROVIDERS: PCP Family Medicine; Visit Provider Family Medicine
DX: Z00.00 Encounter for general adult medical examination without abnormal findings (principal); G62.9 Polyneuropathy, unspecified; R30.0 Dysuria; D75.89 Other specified diseases of blood and blood-forming organs; E03.9 Hypothyroidism, unspecified
CPT/HCPCS: 36415; 80053; 86803; 81003; 81015; 84443; 85025

== ENCOUNTER 2024-02-01 01:06 | Outpatient (CLI) | payer BC, MEDICARE, SELFPAY ==
--- NOTE | 2024-02-01 06:15 | DI.MAMMO_ITS ---
Exam(s) MAMMO SCREENING EXAM: MAMMO SCREENING CLINICAL HISTORY: screening,z12.39 TECHNIQUE: Mammograms were interpreted according to the usual protocol including computer analysis w [employer] CAD system, tomosynthesis and C-view imaging. COMPARISON: 2013 through 2022 FINDINGS: The breasts are composed of scattered fibroglandular densities, Breast Density category B. No suspicious masses or suspicious microcalcifications are seen. No skin thickening or abnormal axillary lymph nodes are seen. There has been no significant change from prior exams. IMPRESSION: BI-RADS Category 1, Negative mammogram Yearly screening mammography is recommended. Breast Density - Category B, scattered fibroglandular densities. A negative radiographic report should not delay biopsy if a dominant or clinically suspicious mass is present. Up to ten percent of cancers are not identified on mammography. A negative report may reinforce clinical impression. Adenosis and dense breasts may obscure an underlying neoplasm. False positive reports average 6 to 10%. Patient will receive a letter notifying them of these results.
== END 2024-02-01 01:26 ==
LOC: DI 01:06
PROVIDERS: PCP Family Medicine; Visit Provider Family Medicine
DX: Z12.31 Encounter for screening mammogram for malignant neoplasm of breast (principal); F43.29 Adjustment disorder with other symptoms; R92.323 Mammographic fibroglandular density, bilateral breasts; F32.9 Major depressive disorder, single episode, unspecified
CPT/HCPCS: 77063; 77067

== ENCOUNTER 2024-05-29 07:56 | Outpatient (CLI) | payer BC, MEDICARE, SELFPAY ==
[2024-05-29 09:03] LABS: Anion Gap 9.4 mmol/L (3-11); BUN 18 mg/dL (7-18); CO2 26.6 mmol/L (21.0-32.0); CREATININE 1.1 mg/dL (0.55-1.02); Calcium 8.9 mg/dL (8.5-10.1); Calculated LDL 76 mg/dL (<100); Chloride 107 mmol/L (98-107); Cholesterol 177 mg/dL (<200); Estimated GFR 53.39 (mL/min/1.73m2); Glucose 111 mg/dL (74-106); HDL Cholesterol 89 mg/dL (>or=50); Potassium 4.1 mmol/L (3.5-5.1); Sodium 143 mmol/L (136-145); Triglyceride 64 mg/dL (<150)
== END 2024-05-29 07:57 | disposition home or self-care (01) ==
LOC: LBO 07:57
PROVIDERS: PCP Family Medicine; Visit Provider Family Medicine
DX: Z13.6 Encounter for screening for cardiovascular disorders (principal); M81.0 Age-related osteoporosis without current pathological fracture; I10 Essential (primary) hypertension
CPT/HCPCS: 36415; 80048; 80061

== ENCOUNTER 2024-08-21 13:38 | Outpatient (CLI) | payer BC, MEDICARE, SELFPAY ==
--- NOTE | 2024-08-21 13:30 | RT.EKG_ITS ---
APPROVED REPORT Exam: Resting ECG Reason for Exam: dizziness Patient Location: O HR:83 bpm ECG Measurements Heart Rate 83 AXIS KS 140 P 81 QRSd 89 QRS 34 QT 345 T 210 QTc 406 Conclusion Sinus rhythm...normal P axis, V-rate 50- [address]-T abnormalities
== END 2024-08-21 13:39 | disposition home or self-care (01) ==
LOC: DI.CM 13:39
PROVIDERS: PCP Family Medicine; Visit Provider Family Medicine
DX: R42 Dizziness and giddiness (principal); I24.9 Acute ischemic heart disease, unspecified; G80.9 Cerebral palsy, unspecified; R07.9 Chest pain, unspecified
CPT/HCPCS: 93010

== ENCOUNTER 2024-08-21 14:31 | Inpatient (IN) | payer BC, MEDICARE, SELFPAY ==
[2024-08-21] VITALS (68 sets, daily range): BP systolic 97–170; BP diastolic 53–113; PULSE 61–85; RESP 11–27; TEMP 36.4–36.8; O2SAT 92–99
--- NOTE | 2024-08-21 14:30 | RT.EKG_ITS ---
APPROVED REPORT Exam: Resting ECG Reason for Exam: chest pain Patient Location: E HR:78 bpm ECG Measurements Heart Rate 78 AXIS MT 137 P 53 QRSd 79 QRS 11 QT 344 T 176 QTc 392 Conclusion Sinus rhythm...normal P axis, V-rate 60- 99 Repol abnrm suggests ischemia, anterolateral...ST dep, T neg, I aVL V2-V6 NSR at 78 Normal [place]/Interval ST changes in lateral precordial lead have been present from EKG dated 11/25/2011. ST depression in I and aVL are new compared to 2011. No EKGs available between 2011 and today. EKG here is same as EKG in office earlier today.
--- NOTE | 2024-08-21 14:49 | W.ED.GENAD ---
Discharge Plan Disposition Patient Disposition: Admit to [facility] Condition: Stable Discharge Details Clinical Impression: ACS (acute coronary syndrome) Primary Care Provider: Nadia Stanford ED Provider: Rj Hoffman [place] Meds and New Rx's Prescriptions: No Action famotidine 20 mg tablet 20 mg PO BID Qty: 180 3RF rosuvastatin 10 mg tablet 10 mg PO DAILY Qty: 90 3RF sertraline 100 mg tablet 100 mg PO DAILY Qty: 90 3RF acyclovir 400 mg tablet 400 mg PO DAILY Qty: 90 3RF alendronate [Fosamax] 70 mg tablet 70 mg PO QWEEK Qty: 13 3RF calcium carb,cit-mag cit,ox-D3 300 mg-150 mg- 400 unit tablet 2 tab PO DAILY Qty: 180 3RF gabapentin 300 mg capsule 300 mg PO BID Qty: 60 5RF clonazepam 0.5 mg tablet 0.5 mg PO QHS Qty: 30 5RF ibuprofen [Advil] 200 mg tablet 400 mg PO Q6H PRN (Reason: pain) Qty: 30 1RF HPI General Mode of arrival: ambulatory. Date/Time Provider Initiated Documentation: 08/21/24 14:49. Limitations to Documentation: no limitations. Information obtained by: patient, RN notes reviewed and old records reviewed. HPI Narrative: Patient sent into ED from PCP office for evaluation of chest pain and EKG changes. Patient reports that over the last 2 weeks she has had intermittent episodes of substernal chest discomfort without radiation. She has had no shortness of breath. She does feel weak and dizzy especially when she develops the chest discomfort. She has also developed back pain extending from mid scapular down to her waist. She has had this somewhat intermittently in the past but has been a persistent thing over the last 2 weeks. She has not experienced any type of neurologic symptomatology. She has neuropathy of the lower extremities which has slowly changed over time but not acutely changed. Denies any fever, cough, abdominal pain, vomiting or diarrhea. She had an EKG in the doctor's office this afternoon suggesting possible ischemia and was sent here to the ED for evaluation. She did not receive aspirin prior to being sent to ED. She is currently not having chest discomfort here, she is having some continued back pain. She does report that she feels like something is in her right eye and she has a headache both of which started today and seems to be unrelated to reason for ED visit. Related Data Home Medications ?Medication ?Instructions ?Recorded ?Confirmed ibuprofen 200 mg tablet (Advil) 400 mg (2 x 200 mg) PO Q6H PRN 11/12/22 08/21/24 pain #30 tabs acyclovir 400 mg tablet 400 mg PO DAILY #90 tabs 01/13/24 08/21/24 alendronate 70 mg tablet (Fosamax) 70 mg PO QWEEK #13 tabs 01/13/24 08/21/24 calcium 300 mg (carb, 2 tab PO DAILY #180 tabs 01/13/24 08/21/24 citrate)-magnesium 150 mg-vit D3 400 unit tablet famotidine 20 mg tablet 20 mg PO BID #180 tabs 01/13/24 08/21/24 rosuvastatin 10 mg tablet 10 mg PO DAILY #90 tabs 01/13/24 08/21/24 sertraline 100 mg tablet 100 mg PO DAILY #90 tabs 01/13/24 08/21/24 clonazepam 0.5 mg tablet 0.5 mg PO QHS anxiety #30 tabs 06/01/24 08/21/24 gabapentin 300 mg capsule 300 mg PO BID #60 caps 06/01/24 08/21/24 Previous Rx's ?Medication ?Instructions ?Recorded ibuprofen 200 mg tablet (Advil) 400 mg (2 x 200 mg) PO Q6H PRN 11/12/22 pain #30 tabs acyclovir 400 mg tablet 400 mg PO DAILY #90 tabs 01/13/24 alendronate 70 mg tablet (Fosamax) 70 mg PO QWEEK #13 tabs 01/13/24 calcium 300 mg (carb, 2 tab PO DAILY #180 tabs 01/13/24 citrate)-magnesium 150 mg-vit D3 400 unit tablet famotidine 20 mg tablet 20 mg PO BID #180 tabs 01/13/24 rosuvastatin 10 mg tablet 10 mg PO DAILY #90 tabs 01/13/24 sertraline 100 mg tablet 100 mg PO DAILY #90 tabs 01/13/24 clonazepam 0.5 mg tablet 0.5 mg PO QHS anxiety #30 tabs 06/01/24 gabapentin 300 mg capsule 300 mg PO BID #60 caps 06/01/24 Allergies Allergy/AdvReac Type Severity Reaction Status Date / Time fentanyl AdvReac Severe NAUSEA/VOMI Verified 08/21/24 15:26 TING General Stated Complaint: Chest Pain LYNSEY: 2 Exam Narrative Exam Narrative: Const: WDWN elderly female in NAD. VS per triage. HEENT: NC/AT. Normal facial exam. Neck: Supple. Trachea midline. Lungs: Normal respiratory effort. Lungs diminished in the right base. Cor: RRR without murmur. Good radial pulses. GI: Soft/ND/NT. Neuro: A+O x 3. Normal speech, mentation, gait. Cranial nerves II - XII grossly intact. No gross motor or sensory deficit. Ext: No C/C/E. Course Vital Signs Vital signs: Vital Signs Temperature 98.2 F 08/21/24 14:41 Pulse 80 08/21/24 14:41 Respiratory Rate 13 08/21/24 14:41 Blood Pressure 142/86 H 08/21/24 14:41 Pulse Oximetry 96 08/21/24 14:41 Temperature 98.2 F 08/21/24 14:41 Temperature Source Oral 08/21/24 14:41 Pulse 80 08/21/24 14:41 Respiratory Rate 13 08/21/24 14:41 Blood Pressure 142/86 H 08/21/24 14:41 Blood Pressure Position Sitting 08/21/24 14:41 Pulse Oximetry 96 08/21/24 14:41 Oxygen Delivery Method Room Air 08/21/24 14:41 Oxygen Flow Rate 0 08/21/24 14:41 Medical Decision Making Patient sent into ED for evaluation of intermittent chest pressure over 2 weeks with EKG changes suggesting ischemia. Patient also reporting back pain extending thoracic to pelvis. Has had intermittently in the past but is now constant and worse. No neurologic changes. Her EKG from the office is similar to EKG here which shows sinus rhythm with normal axis and intervals but ST depression in 1 and aVL, inverted T waves V2 through V6. Compared to an EKG from 2012 the T wave inversions in the precordial lateral leads have been present since 2012. The ST depression in 1 and L are new. There is no STEMI. My differential does include ACS. Potentially dissection given the complaint of a more constant back pain. She is diminished in the right base on lung exam unclear etiology, consider effusion. Will place 2 IVs. Will obtain CTA of the thorax to evaluate for possible dissection. Laboratory studies including troponin, lipase sent. Will hold off on aspirin or heparin until results of CTA completed. It is somewhat reassuring that her precordial EKG changes are old though the lateral limb leads are concerning. 17:00 - Patient's intial labs reassuring with normal troponin and unremarkable CBC, chemistry, liver function. CTA of the thorax per radiology read with no evidence of dissection, PE, acute pathology other than a 5 mm left UPJ stone with minimal dilatation of collecting system. This obviously is not causing her symptoms but will need to be addressed as outpatient with urology. Urinalysis does show blood but no infection. Patient's second troponin returned normal. However, her HEART score puts her in high risk category especially with EKG findings. I have discussed this with the patient. Recommend chest pain observation overnight and stress testing in the morning. She was agreeable to same. Called and spoke with the hospitalist who reports there is no cardiology available tomorrow so no stress testing. I have placed a call to [facility] cardiology to discuss recommendations with them. 18:00 - Discussed patient with cardiology at [facility]. Reviewed patient's presentation, complaints, labs, EKG. Agree that presentation is concerning for ACS especially with EKG changes. As such recommendation is aspirin and heparin, transfer to [facility] tomorrow when bed available for ischemic workup. Patient has already received her aspirin. Will start with heparin bolus and infusion. Will discuss with hospitalist for admission here overnight. Patient and daughter aware of plan and agreed to same. The accepting aeronautical inspector at [facility] for tomorrow is Dr. Lilly. Medical Records Medical records reviewed: Yes I reviewed the patient's medical records. Medical records narrative: PCP notes Lab Data Lab results reviewed: Yes I reviewed the patient's lab results. 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 Family hx-breast malignancy Chronic ulcerative proctitis Family History Mother , 82 Colon cancer Father , 82 Colon cancer Brother Hyperlipidemia Maternal Grandfather Lung cancer Paternal Grandfather Diabetes Maternal Grandmother Essential hypertension Paternal Grandmother Essential hypertension Social History Smoking/Tobacco Use Status: Former Tobacco Use tobacco type: cigarettes Quit Date: 03/21/19 Tobacco: How many years used: 20 Second Hand Exposure: Yes Smoking risk assessment performed?: Yes Alcohol Intake: current Alcohol Intake frequency: a few times a month Alcohol type: beer, wine and hard liquor Drug use: Never Substance use type: does not use Adopted: No Caregiver/Support person: No Foster care: No Household members: family Housing: house Number of Children: 1 number of grandchildren: 1 Communication Needs: None Education Level: high school Do you need help understanding health information?: Rarely 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 Pets and animals: No Sexually active: No Do you think of yourself as: straight/heterosexual Current gender identity: female What is your relationship status?: How often do you get together with friends or relatives?: three or more times per week How often do you attend methodist or synagogue services?: decline to answer Do you belong to any clubs or organized social groups?: no Panel score (0-1 are the most socially isolated patients): 1 Duration: 15-30 minutes/day Special deepika needs: No Agree to transfusion: Yes Seatbelt use: always Helmet use: Yes Helmet use: always Drive intox or ride w/intox truck driver rubbish collector: No Working smoke detector in home: Yes Firearms in home: No Do you feel safe at home: Yes Additional Social history: lives alone
--- NOTE | 2024-08-21 15:00 | DI.CT_ITS ---
Exam(s) CT THORAX ABD/PEL CTA EXAM: CT THORAX ABD/PEL CTA CLINICAL HISTORY: Chest pain concern for dissection. TECHNIQUE: Imaging Protocol: Axial CT angiography was performed with multi-slice acquisition and m ulti-planar and/or 3D reconstructions. Lung Computer Aided Detection (CAD) was utilized. CONTRAST MATERIAL: Intravenous: Omnipaque 350 contrast volume:125 mL Oral: No COMPARISON: There are no priors for comparison. FINDINGS: CHEST: Tracheobronchial tree: Patent where visualized. There is no evidence of bronchiectasis. Pulmonary parenchyma: No consolidation or dominant measurable mass. Dependent atelectasis is seen in the lung bases. Pulmonary Arteries: No evidence of filling defect to suggest pulmonary emboli. Mediastinum and Hailee: No dominant adenopathy or fluid collection. The esophagus is unremarkable. Visualized thyroid: Unremarkable. Pleura: No effusion or pneumothorax. Heart: The heart is not dilated. No coronary artery calcifications are seen. No pericardial effusion. Aorta: Thoracic aorta non-dilated. No evidence of dissection. Soft Tissues: Unremarkable. Bones: Within normal limits for the patient's age.There is a right convex curvature of the thoracic s pine. ABDOMEN AND PELVIS: Abdomen: Celiac axis/mesenteric arteries: No evidence of occlusion or significant stenosis. Renal Arteries: No evidence of occlusion or significant stenosis. Aorta: No evidence of occlusion or significant stenosis. No aneurysm or dissection. Minimal athero sclerotic calcification is present. Pelvis: Iliac Arteries: No evidence of occlusion or significant stenosis. Common Femoral Arteries: No evidence of occlusion or significant stenosis. ABDOMEN: Liver: Normal density. No measurable mass. Portal, superior mesenteric and splenic veins: Unremarkable. Gallbladder and Biliary Tract: No radiodense calculus or dilation. Pancreas: Normal density, no abnormal calcifications or inflammatory process. Spleen: Normal. Adrenals: No masses seen. Kidneys: Normal size, contour and axis. There is a 5 mm stone at the left UPJ. There is mild delayed enhancement of the left kidney relative to the right. There is minimal dilatation of the left renal p douglas. No masses seen. Bowel: There is diverticulosis of the colon without evidence of acute diverticulitis. There is no chad dence of bowel obstruction or bowel wall thickening. Appendix is unremarkable. Peritoneal Cavity: No ascites, collection or mesenteric inflammatory response. No free air. Lymph Nodes: Within normal limits. Bones: Within normal limits for the patient's age. Soft Tissues: Unremarkable. PELVIS: Bladder: Symmetric distention, no gross wall thickening. Reproductive Organs: Unremarkable as visualized. Lymph Nodes: Within normal limits. Bones: Within normal limits for the patient's age. IMPRESSION: 1. No evidence of thoracic aortic aneurysm, dissection or pulmonary embolism. 2. No evidence of abdominal aortic dissection or aneurysm. 3. 5 mm left UPJ stone with minimal dilatation of the collecting system. 4. No acute pulmonary process. 5. Colonic diverticulosis without evidence of acute diverticulitis. RADIATION DOSE DELIVERED: Total DLP DATA REPOSITORY: All CT scans at this facility are submitted to the National Radiology Data Registry (NRDR) Dose Index Registry (DIR) with the [employer] (ACR). RADIATION OPTIMIZATION: All CT scans at this facility use at least one of these dose optimization te chniques: automated exposure control; mA and/or kV adjustment per patient size (includes targeted exa ms where dose is matched to clinical indication); or iterative reconstruction.
[2024-08-21 15:25] LABS: Abs Immature Grans 0.02 10^3/uL (0.0-0.06); Absolute Basophil Count 0.05 10^3/uL (0.0-0.2); Absolute Eosinophil Count 0.14 10^3/uL (0.0-0.7); Absolute Lymphocyte Count 2.59 10^3/uL (1.2-3.4); Absolute Monocyte Count 0.66 10^3/uL (0.1-0.8); Absolute Neutrophil Count 3.81 10^3/uL (1.2-6.7); Basophils % 0.7 %; Eosinophils % 1.9 %; HCT 37.4 % (36.0-46.0); HGB 11.9 g/dL (11.2-15.7); Immature Grans % 0.3 %; Lymphocytes % 35.6 %; MCH 30.8 pg (27.0-33.0); MCHC 31.8 % (32.0-36.0); MCV 97 fL (80-95); MPV 10.2 fL (8.0-11.0); Monocytes % 9.1 %; Neutrophils % 52.4 %; Platelet Count 239 10^3/uL (130-400); RBC 3.86 10^6/uL (3.93-5.22); RDW 12.6 % (11.7-14.6); RDW-SD 44.9 fL; WBC 7.27 10^3/uL (4.4-10.8)
[2024-08-21] MEDS: Normal Saline - Diluent 50 ML VIAL IJ (15:28)
[2024-08-21] MEDS: Omnipaque 350 MG/ML 100 ML BTL 125 ML IJ (15:29)
[2024-08-21 15:39] LABS: INR 0.9 (0.9-1.1); PTT Activated 24.3 sec (20.6-30.2); Prothrombin Time 9.4 sec (9.1-11.1)
[2024-08-21 15:43] LABS: ALT 22 U/L (14-59); AST 19 U/L (15-37); Albumin 3.6 g/dL (3.4-5.0); Alkaline Phosphatase 123 U/L (46-116); Anion Gap 6.5 mmol/L (3-11); BUN 20 mg/dL (7-18); Bilirubin, Total 0.3 mg/dL (0.2-1.0); CO2 29.5 mmol/L (21.0-32.0); Calcium 9.3 mg/dL (8.5-10.1); Chloride 109 mmol/L (98-107); Estimated GFR 59.49 (mL/min/1.73m2); Glucose 114 mg/dL (74-106); Lipase 43 U/L (<78); Potassium 3.8 mmol/L (3.5-5.1); Sodium 145 mmol/L (136-145); Total Protein 7.4 g/dL (6.4-8.2); Troponin I 7 ng/L (<or=51)
[2024-08-21 16:34] LABS: Troponin I 6 ng/L (<or=51)
[2024-08-21] MEDS: Aspirin 81 MG CHEW 324 MG CH (16:39)
[2024-08-21 16:59] LABS: Bilirubin Negative (Negative); Blood Small (Negative); Clarity Clear (Clear); Glucose Negative (Negative); Ketones Negative (Negative); Leukocyte Esterase Negative (Negative); Nitrite Negative (Negative); Urobilinogen 0.2 mg/dL (Up to 0.2); pH 5.5 (5-8)
[2024-08-21 17:10] LABS: Bacteria Rare HPF (Negative); C & S Indicated? No; Casts Negative LPF (Negative); Crystals Negative HPF (Negative); Epithelial Cells Few HPF (Negative); Mucus Trace (Negative); Other Cells Rare Renal (Negative)
[2024-08-21] MEDS: Heparin in 0.45% NaCl 25,000 UNIT/250 ML BAG 10 UNIT IVINF (18:21)
[2024-08-21 18:40] LABS: Troponin I 9 ng/L (<or=51)
--- NOTE | 2024-08-21 18:45 | RT.EKG_ITS ---
APPROVED REPORT Exam: Resting ECG Reason for Exam: Patient Location: E HR:72 bpm ECG Measurements Heart Rate 72 AXIS RI 154 P 51 QRSd 79 QRS 42 QT 382 T 229 QTc 419 Conclusion Sinus rhythm...normal P axis, V-rate 60- 99 Abnormal T, consider ischemia, diffuse leads...T <-0.20mV, ant/lat/inf No real change in anterior/lateral ST segments compared to earlier today. New T wave inversion in th e inferior leads.
[2024-08-21] MEDS: nitroGLYcerin 0.4 MG TAB SL ×2 (18:55→19:06)
[2024-08-21] MEDS: nitroGLYcerin in D5W 50 MG/250 ML BTL IV (19:23)
[2024-08-21] MEDS: nitroGLYcerin 2% 1 INCH/1 GM PKT TP (21:41)
--- NOTE | 2024-08-21 21:42 | W.PC.ACHO ---
Registration Status: Primary Language: Preferred Language: ED Information & Data Chief Complaint Chest Pain 08/21/24 15:21 Chief Complaint Chest Pain 08/21/24 15:09 Triage Note Having heaviness in chest 08/21/24 14:41 today (began at end of july). PCP visit for it today) had ekg changes at PCPs office. no sob, no fever, no radiation of discomfort. Medical / Surgical History (Last Reviewed 08/21/24 @ 15:14 by Rj Hoffman MD) Peripheral neuropathy Osteoporosis Hyperlipidemia GERD (gastroesophageal reflux disease) Family history of colon cancer Abnormal glandular Papanicolaou smear of vagina (02/17/06) Polyp of colon Insomnia History of tobacco use Family hx-breast malignancy Chronic ulcerative proctitis Most Recent Vital Signs Temperature 36.8 C 08/21/24 14:41 Temperature Source Oral 08/21/24 14:41 Pulse 79 08/21/24 20:37 Pulse 70 08/21/24 20:37 Respiratory Rate 11 L 08/21/24 20:37 Respiratory Effort Normal, Non-Labored 08/21/24 15:21 Respiratory Depth Normal 08/21/24 15:21 Respiratory Pattern Normal 08/21/24 15:21 Blood Pressure 97/77 L 08/21/24 20:37 Blood Pressure Mean 82 08/21/24 20:37 Blood Pressure Position Sitting 08/21/24 14:41 Pulse Oximetry 93 08/21/24 20:37 Oxygen Delivery Method Room Air 08/21/24 14:41 Oxygen Flow Rate 0 08/21/24 14:41 Allergies fentanyl Adverse Reaction (Severe, Verified 08/21/24 15:26) NAUSEA/VOMITING Precautions Isolation Standard precaution 08/21/24 15:21 Active Medications Generic Name Dose Route Start Last Admin Trade Name Freq PRN Reason Stop Dose Admin Heparin Sodium/Sodium Chloride 25,000 unit in 250 mls @ 10 mls/hr 08/21/24 18:15 08/21/24 18:21 IVINF 1,000 units/hr INFUSION MANUEL 10 mls/hr Administration Protocol 1,000 UNITS/HR Iohexol 125 ml 08/21/24 15:30 08/21/24 15:29 Omnipaque 350 Mg/Ml 100 Ml Btl IJ 09/20/24 23:59 125 ml DIRECTED MANUEL Administration Nitroglycerin 0.4 mg 08/21/24 19:00 08/21/24 19:06 Nitroglycerin 0.4 Mg Tab SL 0.4 mg Q5 MIN PRN X3 PRN Administration Sodium Chloride 50 ml 08/21/24 15:30 08/21/24 15:28 Normal Saline - Diluent 50 Ml Vial IJ 50 ml .FOR DI USE MANUEL Administration IV IV Catheter Type [Left Saline Lock Antecubital] IV Catheter Type [Right Saline Lock Antecubital] IV Catheter Gauge [Left 18 Antecubital] IV Catheter Gauge [Right 18 Antecubital] Diagnostics 08/21/24 08/21/24 08/21/24 Range/Units 18:11 16:08 15:15 WBC 7.27 (4.4-10.8) 10^3/uL RBC 3.86 L (3.93-5.22) 10^6/uL Hgb 11.9 (11.2-15.7) g/dL Hct 37.4 (36.0-46.0) % MCV 97 H (80-95) fL MCH 30.8 (27.0-33.0) pg MCHC 31.8 L (32.0-36.0) % RDW 12.6 (11.7-14.6) % Plt Count 239 (130-400) 10^3/uL MPV 10.2 (8.0-11.0) fL Immature Gran % 0.3 % Neutrophils % 52.4 % Lymphocytes % 35.6 % Monocytes % 9.1 % Eosinophils % 1.9 % Basophils % 0.7 % Nucleated RBC % 0.0 (0.0-0.3) % Absolute Neutrophils 3.81 (1.2-6.7) 10^3/uL Absolute Lymphocytes 2.59 (1.2-3.4) 10^3/uL Absolute Monocytes 0.66 (0.1-0.8) 10^3/uL Absolute Eosinophils 0.14 (0.0-0.7) 10^3/uL Absolute Basophils 0.05 (0.0-0.2) 10^3/uL PT 9.4 (9.1-11.1) sec INR 0.9 (0.9-1.1) APTT 24.3 (20.6-30.2) sec Sodium 145 (136-145) mmol/L Potassium 3.8 (3.5-5.1) mmol/L Chloride 109 H (98-107) mmol/L Carbon Dioxide 29.5 (21.0-32.0) mmol/L Anion Gap 6.5 (3-11) mmol/L BUN 20 H (7-18) mg/dL Creatinine 1.0 (0.55-1.02) mg/dL Est GFR (CKD-EPI 2020) 59.49 (mL/min/1.73m2) Glucose 114 H (74-106) mg/dL Calcium 9.3 (8.5-10.1) mg/dL Magnesium 2.0 (1.8-2.4) mg/dL Total Bilirubin 0.3 (0.2-1.0) mg/dL AST 19 (15-37) U/L ALT 22 (14-59) U/L Alkaline Phosphatase 123 H (46-116) U/L Troponin I 9 6 7 (<or=51) ng/L Total Protein 7.4 (6.4-8.2) g/dL Albumin 3.6 (3.4-5.0) g/dL Lipase 43 (<78) U/L Urine Color (Yellow) Urine Clarity (Clear) Urine pH (5-8) Ur Specific [place] (1.005-1.025) Urine Protein (Neg-Trace) mg/dL Urine Ketones (Negative) mg/dL Urine Blood (Negative) Urine Nitrite (Negative) Urine Bilirubin (Negative) Urine Urobilinogen (Up to 0.2) mg/dL Ur Leukocyte Esterase (Negative) Urine RBC (0-2) HPF Urine WBC (0-5) HPF Ur Epithelial Cells (Negative) HPF Urine Crystals (Negative) HPF Urine Bacteria (Negative) HPF Urine Casts (Negative) LPF Urine Mucus (Negative) Urine Other (Negative) Ur Culture Indicated? Urine Glucose (Negative) mg/dL 08/21/24 Range/Units 11:50 WBC (4.4-10.8) 10^3/uL RBC (3.93-5.22) 10^6/uL Hgb (11.2-15.7) g/dL Hct (36.0-46.0) % MCV (80-95) fL MCH (27.0-33.0) pg MCHC (32.0-36.0) % RDW (11.7-14.6) % Plt Count (130-400) 10^3/uL MPV (8.0-11.0) fL Immature Gran % % Neutrophils % % Lymphocytes % % Monocytes % % Eosinophils % % Basophils % % Nucleated RBC % (0.0-0.3) % Absolute Neutrophils (1.2-6.7) 10^3/uL Absolute Lymphocytes (1.2-3.4) 10^3/uL Absolute Monocytes (0.1-0.8) 10^3/uL Absolute Eosinophils (0.0-0.7) 10^3/uL Absolute Basophils (0.0-0.2) 10^3/uL PT (9.1-11.1) sec INR (0.9-1.1) APTT (20.6-30.2) sec Sodium (136-145) mmol/L Potassium (3.5-5.1) mmol/L Chloride (98-107) mmol/L Carbon Dioxide (21.0-32.0) mmol/L Anion Gap (3-11) mmol/L BUN (7-18) mg/dL Creatinine (0.55-1.02) mg/dL Est GFR (CKD-EPI 2020) (mL/min/1.73m2) Glucose (74-106) mg/dL Calcium (8.5-10.1) mg/dL Magnesium (1.8-2.4) mg/dL Total Bilirubin (0.2-1.0) mg/dL AST (15-37) U/L ALT (14-59) U/L Alkaline Phosphatase (46-116) U/L Troponin I (<or=51) ng/L Total Protein (6.4-8.2) g/dL Albumin (3.4-5.0) g/dL Lipase (<78) U/L Urine Color Yellow (Yellow) Urine Clarity Clear (Clear) Urine pH 5.5 (5-8) Ur Specific [place] 1.020 (1.005-1.025) Urine Protein Trace (Neg-Trace) mg/dL Urine Ketones Negative (Negative) mg/dL Urine Blood Small H (Negative) Urine Nitrite Negative (Negative) Urine Bilirubin Negative (Negative) Urine Urobilinogen 0.2 (Up to 0.2) mg/dL Ur Leukocyte Esterase Negative (Negative) Urine RBC 5-10 H (0-2) HPF Urine WBC 3-5 (0-5) HPF Ur Epithelial Cells Few (Negative) HPF Urine Crystals Negative (Negative) HPF Urine Bacteria Rare (Negative) HPF Urine Casts Negative (Negative) LPF Urine Mucus Trace (Negative) Urine Other Rare Renal (Negative) Ur Culture Indicated? No Urine Glucose Negative (Negative) mg/dL Intake and Output - 24 Hour Total 08/21/24 14:31 thru 08/21/24 20:56 Intake Total 6.55 Balance 6.55 Weight 80.286 kg Intake: IV 6.55 Falls Risk Assessment History of Falls No History 08/21/24 15:21 Contributing Factors No Factors 08/21/24 15:21 Ambulatory Aids Independent 08/21/24 15:21 Tubes/Lines None 08/21/24 15:21 Gait Evaluation No gait disturbance 08/21/24 15:21 Cognition No cognitive impairment 08/21/24 15:21 Fall Total Score 0 08/21/24 15:21 Level of Risk Standard/Low Risk 08/21/24 15:21 Problems (Last Reviewed 08/21/24 @ 15:14 by Rj Hoffman MD) ACS (acute coronary syndrome) (Acute) v v v v v v v v v Sending and/or Receiving Nurses: Please use comment section below to note any information pertinent to the patient hand-off not included above. Information / Comments: Patient A&Ox4. Came in for chest heaviness she has been experiencing for last few weeks. On Heparin drip at 10. EKG changes noted. Accepted to go to [facility] tomorrow. Report received from: Nicole
[2024-08-21] MEDS: clonazePAM 0.5 MG TAB PO (22:31)
[2024-08-21] MEDS: Gabapentin 300 MG CAP PO (22:31)
[2024-08-21] MEDS: Famotidine 20 MG TAB PO (22:32)
[2024-08-21] MEDS: Normal Saline Flush 10 ML SYR IVP (22:32)
--- NOTE | 2024-08-21 22:44 | W.PM.HP.N ---
Date of service: 08/21/24 Time of Service: 23:11 Assessment and Plan Assessment and plan (1) ACS (acute coronary syndrome): Status: Acute Assessment and plan: Patient presents with ACS concerning for non-STEMI. Unclear if this is a coronary vasospasm it is occurring or true plaque blockage. She will need a cath. Low threshold for repeat EKGs Trend serial troponins Heparin drip Aspirin loaded, continue daily aspirin Plavix has not been initiated Check TSH, lipids, A1c Continue home meds otherwise Monitor on telemetry Patient with nitro paste (nitro drip in the ED briefly but was discontinued) Admit to inpatient status with transfer pending to [facility]. She will need inpatient stay greater than 2 minutes. History of Present Illness History of Present Illness Chief Complaint: Chest Pain Narrative: Patient is a 74 woman with a past ministry significant for osteoporosis, depression, GERD, hyperlipidemia who presents with chest pain. Patient has had several episodes since July 2016 Before then with substernal chest pressure with radiation down both arms and heaviness down both arms. Her first episode was with exertion while she was cleaning and it made her dizzy. The last several episodes have been at breast. Patient has had no jaw pain. No nausea. No diaphoresis, vision changes, headaches. She does have chronic peripheral neuropathy. She went to her doctor's office and showed ST depressions on EKG and came to the emergency room. EKG ST depressions have persisted with some T wave inversions as well. Troponins have been negative. She reports a headache today but previously has not had any. She otherwise denies abdominal complaints, dyspnea, urinary complaints. 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 GERD (gastroesophageal reflux disease) Family hx-breast malignancy Chronic ulcerative proctitis Surgical History (Updated 08/21/24 @ 23:14 by Kamron Isaac MD) No pertinent past surgical history Family History Mother , 82 Colon cancer Father , 82 Colon cancer Brother Hyperlipidemia Maternal Grandfather Lung cancer Paternal Grandfather Diabetes Maternal Grandmother Essential hypertension Paternal Grandmother Essential hypertension Social History Smoking/Tobacco Use Status: Former Tobacco Use tobacco type: cigarettes Quit Date: 03/21/19 Tobacco: How many years used: 20 Second Hand Exposure: Yes Smoking risk assessment performed?: Yes Alcohol Intake: current Alcohol Intake frequency: a few times a month Alcohol type: beer, wine and hard liquor Drug use: Never Substance use type: does not use Adopted: No Caregiver/Support person: No Foster care: No Household members: family Housing: house Number of Children: 1 number of grandchildren: 1 Communication Needs: None Education Level: high school Do you need help understanding health information?: Rarely 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 Pets and animals: No Sexually active: No Do you think of yourself as: straight/heterosexual Current gender identity: female What is your relationship status?: How often do you get together with friends or relatives?: three or more times per week How often do you attend buddhism or druze services?: decline to answer Do you belong to any clubs or organized social groups?: no Panel score (0-1 are the most socially isolated patients): 1 Duration: 15-30 minutes/day Special deepika needs: No Agree to transfusion: Yes Seatbelt use: always Helmet use: Yes Helmet use: always Drive intox or ride w/intox straddle truck driver: No Working smoke detector in home: Yes Firearms in home: No Do you feel safe at home: Yes Additional Social history: lives alone Meds Allergies and Home Medications Allergies Allergy/AdvReac Type Severity Reaction Status Date / Time fentanyl AdvReac Severe NAUSEA/VOMI Verified 08/21/24 15:26 TING Home Medications ?Medication ?Instructions ?Recorded ?Confirmed ?Type ibuprofen 200 mg tablet (Advil) 400 mg (2 x 200 mg) PO Q6H PRN 11/12/22 08/21/24 Rx pain #30 tabs acyclovir 400 mg tablet 400 mg PO DAILY #90 tabs 01/13/24 08/21/24 Rx alendronate 70 mg tablet (Fosamax) 70 mg PO QWEEK #13 tabs 01/13/24 08/21/24 Rx calcium 300 mg (carb, 2 tab PO DAILY #180 tabs 01/13/24 08/21/24 Rx citrate)-magnesium 150 mg-vit D3 400 unit tablet famotidine 20 mg tablet 20 mg PO BID #180 tabs 01/13/24 08/21/24 Rx rosuvastatin 10 mg tablet 10 mg PO DAILY #90 tabs 01/13/24 08/21/24 Rx sertraline 100 mg tablet 100 mg PO DAILY #90 tabs 01/13/24 08/21/24 Rx clonazepam 0.5 mg tablet 0.5 mg PO QHS anxiety #30 tabs 06/01/24 08/21/24 Rx gabapentin 300 mg capsule 300 mg PO BID #60 caps 06/01/24 08/21/24 Rx Exam Narrative Exam Narrative: Patient with normal HEENT. Normal general exam in no distress. Lungs are clear. She does have some mild nonpitting peripheral edema. Abdomen is nontender, nondistended. Cardiac exam reveals a mild systolic murmur but otherwise normal rate and rhythm. Results Imaging Imaging Studies: CT C/A/P IMPRESSION: 1. No evidence of thoracic aortic aneurysm, dissection or pulmonary embolism. 2. No evidence of abdominal aortic dissection or aneurysm. 3. 5 mm left UPJ stone with minimal dilatation of the collecting system. 4. No acute pulmonary process. 5. Colonic diverticulosis without evidence of acute diverticulitis. Labs 08/21/24 15:15 08/21/24 15:15 Labs: Laboratory Results - last 24 hr 08/21/24 08/21/24 08/21/24 11:50 15:15 16:08 WBC 7.27 RBC 3.86 L Hgb 11.9 Hct 37.4 MCV 97 H MCH 30.8 MCHC 31.8 L RDW 12.6 Plt Count 239 MPV 10.2 Immature Gran % 0.3 Neutrophils % 52.4 Lymphocytes % 35.6 Monocytes % 9.1 Eosinophils % 1.9 Basophils % 0.7 Nucleated RBC % 0.0 Absolute Neutrophils 3.81 Absolute Lymphocytes 2.59 Absolute Monocytes 0.66 Absolute Eosinophils 0.14 Absolute Basophils 0.05 PT 9.4 INR 0.9 APTT 24.3 Sodium 145 Potassium 3.8 Chloride 109 H Carbon Dioxide 29.5 Anion Gap 6.5 BUN 20 H Creatinine 1.0 Est GFR (CKD-EPI 2020) 59.49 Glucose 114 H Calcium 9.3 Magnesium 2.0 Total Bilirubin 0.3 AST 19 ALT 22 Alkaline Phosphatase 123 H Troponin I 7 6 Total Protein 7.4 Albumin 3.6 Lipase 43 Urine Color Yellow Urine Clarity Clear Urine pH 5.5 Ur Specific [place] 1.020 Urine Protein Trace Urine Ketones Negative Urine Blood Small H Urine Nitrite Negative Urine Bilirubin Negative Urine Urobilinogen 0.2 Ur Leukocyte Esterase Negative Urine RBC 5-10 H Urine WBC 3-5 Ur Epithelial Cells Few Urine Crystals Negative Urine Bacteria Rare Urine Casts Negative Urine Mucus Trace Urine Other Rare Renal Ur Culture Indicated? No Urine Glucose Negative 08/21/24 18:11 WBC RBC Hgb Hct MCV MCH MCHC RDW Plt Count MPV Immature Gran % Neutrophils % Lymphocytes % Monocytes % Eosinophils % Basophils % Nucleated RBC % Absolute Neutrophils Absolute Lymphocytes Absolute Monocytes Absolute Eosinophils Absolute Basophils PT INR APTT Sodium Potassium Chloride Carbon Dioxide Anion Gap BUN Creatinine Est GFR (CKD-EPI 2020) Glucose Calcium Magnesium Total Bilirubin AST ALT Alkaline Phosphatase Troponin I 9 Total Protein Albumin Lipase Urine Color Urine Clarity Urine pH Ur Specific [place] Urine Protein Urine Ketones Urine Blood Urine Nitrite Urine Bilirubin Urine Urobilinogen Ur Leukocyte Esterase Urine RBC Urine WBC Ur Epithelial Cells Urine Crystals Urine Bacteria Urine Casts Urine Mucus Urine Other Ur Culture Indicated? Urine Glucose Last Vital Signs Temp 36.4 C L 08/21/24 22:14 Pulse 70 08/21/24 22:14 Resp 18 08/21/24 22:14 BP 113/65 08/21/24 22:14 Pulse Ox 96 08/21/24 22:14 PAWSS Have you Been Recently Intoxicated or Drunk Within the Last 30 days?: No Have you Ever Experienced Previous Episodes of Alcohol Withdrawal?: No Have you ever Experienced Withdrawal Seizures?: No Have you ever Experienced Delirium Tremens(DT)s?: No Have you ever undergone Alcohol Rehabilitation Treatment (i.e, inpt ot outpatient treatment programs)?: No Have you ever Experienced Blackouts?: No Have you ever Combined Alcohol with other Downers within the last 90 days?: No Have you ever Combined Alcohol with any other Substance of Abuse during the last 90 days?: No Positive Blood Alcohol level on Presentation? [PCS.BAL]: No Evidence of Increased Autonomic Activity (i.e. HR>120, tremor, sweating, agitation, nausea)?: No Result: 0 Time Spent Time spent with Patient: 40-54 minutes Time was spent: preparing to see the patient(eg.review tests), obtaining and/or reviewing separately otained hiistory, ordering medications,tests, procedures, referring, communicating with other health rn managed care, indepentently interpreting results and counseling the patient
[2024-08-21 23:31] LABS: Troponin I 8 ng/L (<or=51)
[2024-08-21] MEDS: Acetaminophen 325 MG TAB 650 MG PO (23:35)
[2024-08-22 03:17] VITALS: BP 112/72; PULSE 63; RESP 18; TEMP 36.2; O2SAT 95
[2024-08-22 03:53] LABS: HCT 34.9 % (36.0-46.0); HGB 11.3 g/dL (11.2-15.7); MCH 31.1 pg (27.0-33.0); MCHC 32.4 % (32.0-36.0); MCV 96 fL (80-95); MPV 10.2 fL (8.0-11.0); Platelet Count 198 10^3/uL (130-400); RBC 3.63 10^6/uL (3.93-5.22); RDW 12.6 % (11.7-14.6); WBC 6.84 10^3/uL (4.4-10.8)
[2024-08-22 04:10] LABS: PTT Activated 100.9 sec (20.6-30.2)
[2024-08-22 04:35] LABS: Anion Gap 6.3 mmol/L (3-11); BUN 19 mg/dL (7-18); CO2 27.7 mmol/L (21.0-32.0); CREATININE 0.9 mg/dL (0.55-1.02); Calcium 8.3 mg/dL (8.5-10.1); Chloride 108 mmol/L (98-107); Glucose 99 mg/dL (74-106); Potassium 3.8 mmol/L (3.5-5.1); Sodium 142 mmol/L (136-145); TSH (W/Ref FT4) 5.43 uIU/mL (0.36-3.74)
[2024-08-22 04:46] LABS: Calculated LDL 57 mg/dL (<100); Cholesterol 141 mg/dL (<200); HDL Cholesterol 77 mg/dL (>or=50); Triglyceride 36 mg/dL (<150)
[2024-08-22 05:02] LABS: FREE T4 0.83 ng/dL (0.76-1.46)
[2024-08-22 05:06] LABS: Hemoglobin A1C 5.9 % (<5.7)
[2024-08-22 07:51] VITALS: BP 110/75; PULSE 64; RESP 16; TEMP 36.5; O2SAT 97
[2024-08-22] MEDS: Acyclovir 400 MG TAB PO (07:55)
[2024-08-22] MEDS: Gabapentin 300 MG CAP PO (07:55)
[2024-08-22] MEDS: Aspirin 81 MG CHEW PO (07:55)
[2024-08-22] MEDS: Sertraline 100 MG TAB PO (07:55)
[2024-08-22] MEDS: Famotidine 20 MG TAB PO (07:55)
[2024-08-22] MEDS: Normal Saline Flush 10 ML SYR IVP (07:56)
[2024-08-22] MEDS: Acetaminophen 325 MG TAB 650 MG PO (08:28)
--- NOTE | 2024-08-22 09:11 | INITIAL_ITS ---
Date of service: 08/22/24 Time of Service: 09:11 Care Management Initial Assmt Initial Assessment Reason for Hospitalization: chest pain Functional Status/Living Situation Patient Presentation: Lolis was seen at her PCP office yesterday with c/o chest pressure and back pain. She was sent to the ED from the office for these concerns, and also an EKG that showed some changes. Lolis reported to the ED that she has had about 2 weeks of chest discomfort, and feeling weak and dizzy, especially when she is having this pain. EKG showed ischemia, but no NSTEMI. Cardiology consult with [facility] stated that she will need a cardiac cath, and transfer to [facility] is planned when a bed is available. Lolis was sitting up in the bed when CM met with her. She looked well. Her daughter, Miley, was visiting. Both were very pleasant. Lolis is independent in the community and has no needs at this time. Lolis was transported to [facility] early this afternoon. Miley plans to meet her there. Town of Residence: [facility] Significant Other/Family: Local (daughter Miley, and grandson , Garrett) Instrumental Activities of Daily Living (ADLs): Independent Medications Medication Management: No Issues/Barriers identified Physical Functioning/Mobility Assistive Device: none Advance Directives Advance Directives: Do you have an Advance Directive: N 01/26/22 16:12 AD On File at [facility]: N 01/26/22 16:12 Date Asked 08/21/24 08/21/24 14:44 AD Date Reviewed COLST On File at [facility] COLST Date Scanned Code Status Resuscitation Status DNR/DNI Insurance Coverage/Financial Issues Insurance: [place] of [place] Medicare Part A & B -? Care Team Visit Care Team Role Provider Type Fabby Stroud NP MD [facility] STAFF PHYSICIAN Nadia Stanford MD Primary Care Provider [facility] STAFF PHYSICIAN Rj Hoffman MD Emergency Provider [facility] STAFF PHYSICIAN Kamron Isaac MD Admit Provider [facility] STAFF PHYSICIAN Attending Provider Discharge Potential Discharge Needs: PCP F/U Appt (planned transfer to [facility] for cardiac catheterization) Anticipated Barriers to Discharge: Bed availability Patient/Family Education Needs: Review discharge instructions, discuss Ask Me Three Transportation: EMS (as coordinated by RN supervisor metal furniture assembly) Plan: Lolis was transferred to [facility] early this afternoon. She transferred via EMS. Social Determinants of Health Screening Social Determinants of health last assessed in clinic: 08/22/24 Will the Patient Participate in the Screening?: Yes Do you worry about having a steady place to live?: no Problems where you live: no known problems In the past 12 months, have you had to go without electric, gas, oil or water in your home?: no 1. Within the past 12 months, we worried whether our food would run out before we got money to buy more.: Never true 2. Within the past 12 months, the food we bought just didn't last and we didn't have money to get more.: Never true Has lack of transportation kept you from medical appointments or from doing things needed for daily living?: no Has anyone in your life made you feel unsafe or unsupported?: no How hard is it for you to pay for the very basics like food, housing, medical care, and heating? Would you say it is:: Not hard at all Do you want help finding or keeping work or a job?: I do not need or want help If for any reason you need help with day-to-day activities such as bathing, preparing meals, shopping, managing finances, etc., do you get the help you need?: I need a lot more help How often do you feel lonely or isolated from those around you?: Never Do you speak a language other than Tajik at home?: No Does the patient want assistance with any of the above?: No Health Related Social Needs Health related social needs: problems with daily activities (Z73.9) PFSH All Active Problems (Updated 08/21/24 @ 18:14 by Rj Hoffman MD) ACS (acute coronary syndrome) (Acute) Chest pressure (Acute) Grief reaction with prolonged bereavement (Acute) Macrocytosis without anemia (Acute) Genital HSV (Chronic) chronic, 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 Family hx-breast malignancy Chronic ulcerative proctitis Surgical History (Updated 08/21/24 @ 23:14 by Kamron Isaac MD) No pertinent past surgical history Family History Mother , 82 Colon cancer Father , 82 Colon cancer Brother Hyperlipidemia Maternal Grandfather Lung cancer Paternal Grandfather Diabetes Maternal Grandmother Essential hypertension Paternal Grandmother Essential hypertension Social History Smoking/Tobacco Use Status: Former Tobacco Use tobacco type: cigarettes Quit Date: 03/21/19 Tobacco: How many years used: 20 Second Hand Exposure: Yes Smoking risk assessment performed?: Yes Alcohol Intake: current Alcohol Intake frequency: a few times a month Alcohol type: beer, wine and hard liquor Drug use: Never Substance use type: does not use Adopted: No Caregiver/Support person: No Foster care: No Household members: family Housing: house Number of Children: 1 number of grandchildren: 1 Communication Needs: None Education Level: high school Do you need help understanding health information?: Rarely 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 Pets and animals: No Sexually active: No Do you think of yourself as: straight/heterosexual Current gender identity: female What is your relationship status?: How often do you get together with friends or relatives?: three or more times per week How often do you attend amish or roman catholic services?: decline to answer Do you belong to any clubs or organized social groups?: no Panel score (0-1 are the most socially isolated patients): 1 Duration: 15-30 minutes/day Special deepika needs: No Agree to transfusion: Yes Seatbelt use: always Helmet use: Yes Helmet use: always Drive intox or ride w/intox jukebox route driver: No Working smoke detector in home: Yes Firearms in home: No Do you feel safe at home: Yes Additional Social history: lives alone
[2024-08-22 11:06] LABS: PTT Activated 95.9 sec (20.6-30.2)
--- NOTE | 2024-08-22 11:32 | CHAPLAIN ---
Lolis said she is waiting to be transferred to [facility] for cardiac care. She told me she's a believer but a not buddhist goer, and she's feeling comfortable with what's going on. She has a daughter and several friends who are like family, and they're all checking in on her. Waiting for a bed, and not doing her usual activities is hard for her, Lolis said. She still works (at [employer]) and has worked in the [employer] industry for many years. She said she'd much rather be in the other chair comforting a friend than being supported by friends.
[2024-08-22 11:37] VITALS: BP 140/82; PULSE 68; RESP 15; TEMP 37; O2SAT 96
--- NOTE | 2024-08-22 11:37 | DSE_ITS ---
Date of service: 08/22/24 Time of Service: 11:38 DS: Diagnosis Discharge Diagnosis (1) ACS (acute coronary syndrome): Status: Acute Discharge Plan Disposition Patient Disposition: Transfer-Acute Inpatient Care Specific Acute Inpt Facility: [facility] Condition: Improving Discharge Details Reason For Visit: nSTEMI Admit Date/Time: 08/21/24 19:08 Admit Provider: Kamron Isaac Attending Provider: Kamron Isaac Primary Care Provider: Nadia Stanford Hospital Course Hospital Course: Primary Diagnosis: Acute Coronary Syndrome ? likely non-ST elevation myocardial infarction Secondary Diagnoses: * Hyperlipidemia * GERD * Depression * Peripheral neuropathy * Osteoporosis * Vitamin D deficiency * Chronic HSV * Macrocytosis without anemia * Sensorineural hearing loss * Obesity * Chronic dependent edema * Grief reaction * Chronic ulcerative proctitis Reason for Transfer: Patient requires a higher level of cardiovascular care, including cardiac catheterization, which is not available at our facility. History of Present Illness: 74-year-old female with multiple comorbidities who presented with several days of intermittent chest pain described as substernal pressure radiating down both arms, occasionally associated with dizziness. Symptoms started in July 2016 but worsened recently. No jaw pain, diaphoresis, or nausea. She experienced ST depressions and T-wave inversions on EKG without positive troponins. Evaluation in the ED and inpatient workup led to concern for non-STEMI vs coronary vasospasm. Hospital Course: * EKG: Persistent ST depressions, T-wave inversions * Troponins: Serial troponins negative initially, but mildly elevated to 9 * Labs: Macrocytosis, mild anemia, elevated alkaline phosphatase * Imaging: CT chest/abdomen/pelvis negative for PE, dissection, or aneurysm; incidental 5mm UPJ stone * Medications: Started on heparin drip, aspirin loaded and continued, nitro drip used briefly, now on nitro paste; Plavix not initiated * Cardiology consulted; recommended transfer for definitive evaluation and possible intervention Vital Signs on Transfer: * Temp: 36.4?C * HR: 70 bpm * BP: 113/65 mmHg * RR: 18 * SpO?: 96% on RA Disposition: Transferred in stable condition to [facility] for further cardiology management including diagnostic and potentially therapeutic catheterization. Medication Reconciliation: Continued: * Aspirin * Rosuvastatin 10 mg PO daily * Sertraline 100 mg PO daily * Gabapentin 300 mg BID * Clonazepam 0.5 mg PO qHS * Acyclovir * Famotidine * Alendronate * Krzyvbb-heqonkigt-cvrhqai D3 supplement * Ibuprofen (PRN) Started during admission: * Heparin drip * Nitro paste Not started but indicated: * Plavix (to be considered post-cath evaluation per [facility] cardiology) Allergies: * Fentanyl ? Nausea/vomiting, tingling (severe) Home Meds and New Rx's Prescriptions: New aspirin 81 mg Tablet,Chewable 81 mg PO DAILY Qty: 0 0RF Continued famotidine 20 mg tablet 20 mg PO BID Qty: 180 3RF rosuvastatin 10 mg tablet 10 mg PO DAILY Qty: 90 3RF sertraline 100 mg tablet 100 mg PO DAILY Qty: 90 3RF acyclovir 400 mg tablet 400 mg PO DAILY Qty: 90 3RF alendronate [Fosamax] 70 mg tablet 70 mg PO QWEEK Qty: 13 3RF calcium carb,cit-mag cit,ox-D3 300 mg-150 mg- 400 unit tablet 2 tab PO DAILY Qty: 180 3RF gabapentin 300 mg capsule 300 mg PO BID Qty: 60 5RF clonazepam 0.5 mg tablet 0.5 mg PO QHS Qty: 30 5RF Discontinued ibuprofen [Advil] 200 mg tablet 400 mg PO Q6H PRN (Reason: pain) Qty: 30 1RF Discharge Instructions Activity:: Activity as Tolerated Equipment/Supplies:: No Equipment Needed Diet:: NPO Discharge Orders Discharge Orders: Discharge Order (Routine); Ordered 08/22/24 Ordered By: Fabby Stroud DS: Summary Time Spent with Patient providing and/or coordinating discharge services: Greater than 30 minutes Status at Discharge Functional status at discharge: independent ambulation Overall status at discharge: patient is progressing back to baseline Mental Status: mental status grossly normal Speech and Movement: speech and movement normal Mood: congruent mood Affect: normal affect Quality:SDOH Health Related Social Needs: Health related social needs problems with daily activi ties (Z73.9) Exam Narrative Exam Narrative: Patient with normal HEENT. Normal general exam in no distress. Lungs are clear. She does have some mild nonpitting peripheral edema. Abdomen is nontender, nondistended. Cardiac exam reveals a mild systolic murmur but otherwise normal rate and rhythm. Psych Mental Status: mental status grossly normal Speech and Movement: speech and movement normal Mood: congruent mood Affect: normal affect DS: Data Vitals/I&O Vitals and I&O: Vital Signs Temperature 36.5 C 08/22/24 07:51 Temperature Source Temporal Artery Scan 08/22/24 07:51 Pulse 64 08/22/24 07:51 Pulse 70 08/21/24 20:37 Respiratory Rate 16 08/22/24 07:51 Respiratory Effort Normal 08/21/24 21:57 Respiratory Depth Normal 08/21/24 21:57 Respiratory Pattern Normal 08/21/24 15:21 Blood Pressure 110/75 08/22/24 07:51 Blood Pressure Mean 86 08/22/24 07:51 Blood Pressure Position Sitting 08/21/24 14:41 Pulse Oximetry 97 08/22/24 07:51 Oxygen Delivery Method Room Air 08/22/24 07:51 Oxygen Flow Rate 0 08/22/24 07:51 Pain Level 0 08/21/24 21:46 Intake & Output 08/21/24 08/21/24 08/22/24 11:59 23:59 11:59 Intake Total 6.55 / 6.55 158.367 / 158.367 Balance 6.55 / 6.55 158.367 / 158.367 Weight 80.286 kg Intake: IV 6.55 / 6.55 158.367 / 158.367 Data Completed and Pending Labs on day of discharge: Labs from last 24 hours 08/22/24 08/22/24 08/22/24 17:15 10:08 03:48 WBC 6.84 RBC 3.63 L Hgb 11.3 Hct 34.9 L MCV 96 H MCH 31.1 MCHC 32.4 RDW 12.6 Plt Count 198 MPV 10.2 Immature Gran % Neutrophils % Lymphocytes % Monocytes % Eosinophils % Basophils % Nucleated RBC % Absolute Neutrophils Absolute Lymphocytes Absolute Monocytes Absolute Eosinophils Absolute Basophils PT INR APTT Pending 95.9 H* 100.9 H* Sodium 142 Potassium 3.8 Chloride 108 H Carbon Dioxide 27.7 Anion Gap 6.3 BUN 19 H Creatinine 0.9 Est GFR (CKD-EPI 2020) 67.50 Glucose 99 Hemoglobin A1c 5.9 H Calcium 8.3 L Magnesium 2.0 Total Bilirubin AST ALT Alkaline Phosphatase Troponin I Total Protein Albumin Triglycerides 36 Total Cholesterol 141 LDL Cholesterol, Calc 57 HDL Cholesterol 77 H Lipase TSH 5.43 H Free T4 0.83 Urine Color Urine Clarity Urine pH Ur Specific [place] Urine Protein Urine Ketones Urine Blood Urine Nitrite Urine Bilirubin Urine Urobilinogen Ur Leukocyte Esterase Urine RBC Urine WBC Ur Epithelial Cells Urine Crystals Urine Bacteria Urine Casts Urine Mucus Urine Other Ur Culture Indicated? Urine Glucose 08/21/24 08/21/24 08/21/24 23:00 18:11 16:08 WBC RBC Hgb Hct MCV MCH MCHC RDW Plt Count MPV Immature Gran % Neutrophils % Lymphocytes % Monocytes % Eosinophils % Basophils % Nucleated RBC % Absolute Neutrophils Absolute Lymphocytes Absolute Monocytes Absolute Eosinophils Absolute Basophils PT INR APTT Sodium Potassium Chloride Carbon Dioxide Anion Gap BUN Creatinine Est GFR (CKD-EPI 2020) Glucose Hemoglobin A1c Calcium Magnesium Total Bilirubin AST ALT Alkaline Phosphatase Troponin I 8 9 6 Total Protein Albumin Triglycerides Total Cholesterol LDL Cholesterol, Calc HDL Cholesterol Lipase TSH Free T4 Urine Color Urine Clarity Urine pH Ur Specific [place] Urine Protein Urine Ketones Urine Blood Urine Nitrite Urine Bilirubin Urine Urobilinogen Ur Leukocyte Esterase Urine RBC Urine WBC Ur Epithelial Cells Urine Crystals Urine Bacteria Urine Casts Urine Mucus Urine Other Ur Culture Indicated? Urine Glucose 08/21/24 08/21/24 15:15 11:50 WBC 7.27 RBC 3.86 L Hgb 11.9 Hct 37.4 MCV 97 H MCH 30.8 MCHC 31.8 L RDW 12.6 Plt Count 239 MPV 10.2 Immature Gran % 0.3 Neutrophils % 52.4 Lymphocytes % 35.6 Monocytes % 9.1 Eosinophils % 1.9 Basophils % 0.7 Nucleated RBC % 0.0 Absolute Neutrophils 3.81 Absolute Lymphocytes 2.59 Absolute Monocytes 0.66 Absolute Eosinophils 0.14 Absolute Basophils 0.05 PT 9.4 INR 0.9 APTT 24.3 Sodium 145 Potassium 3.8 Chloride 109 H Carbon Dioxide 29.5 Anion Gap 6.5 BUN 20 H Creatinine 1.0 Est GFR (CKD-EPI 2020) 59.49 Glucose 114 H Hemoglobin A1c Calcium 9.3 Magnesium 2.0 Total Bilirubin 0.3 AST 19 ALT 22 Alkaline Phosphatase 123 H Troponin I 7 Total Protein 7.4 Albumin 3.6 Triglycerides Total Cholesterol LDL Cholesterol, Calc HDL Cholesterol Lipase 43 TSH Free T4 Urine Color Yellow Urine Clarity Clear Urine pH 5.5 Ur Specific [place] 1.020 Urine Protein Trace Urine Ketones Negative Urine Blood Small H Urine Nitrite Negative Urine Bilirubin Negative Urine Urobilinogen 0.2 Ur Leukocyte Esterase Negative Urine RBC 5-10 H Urine WBC 3-5 Ur Epithelial Cells Few Urine Crystals Negative Urine Bacteria Rare Urine Casts Negative Urine Mucus Trace Urine Other Rare Renal Ur Culture Indicated? 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 Family hx-breast malignancy Chronic ulcerative proctitis Surgical History (Updated 08/21/24 @ 23:14 by Kamron Isaac MD) No pertinent past surgical history Family History Mother , 82 Colon cancer Father , 82 Colon cancer Brother Hyperlipidemia Maternal Grandfather Lung cancer Paternal Grandfather Diabetes Maternal Grandmother Essential hypertension Paternal Grandmother Essential hypertension Social History Smoking/Tobacco Use Status: Former Tobacco Use tobacco type: cigarettes Quit Date: 03/21/19 Tobacco: How many years used: 20 Second Hand Exposure: Yes Smoking risk assessment performed?: Yes Alcohol Intake: current Alcohol Intake frequency: a few times a month Alcohol type: beer, wine and hard liquor Drug use: Never Substance use type: does not use Adopted: No Caregiver/Support person: No Foster care: No Household members: family Housing: house Number of Children: 1 number of grandchildren: 1 Communication Needs: None Education Level: high school Do you need help understanding health information?: Rarely 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 Pets and animals: No Sexually active: No Do you think of yourself as: straight/heterosexual Current gender identity: female What is your relationship status?: How often do you get together with friends or relatives?: three or more times per week How often do you attend congregation or sikh services?: decline to answer Do you belong to any clubs or organized social groups?: no Panel score (0-1 are the most socially isolated patients): 1 Duration: 15-30 minutes/day Special deepika needs: No Agree to transfusion: Yes Seatbelt use: always Helmet use: Yes Helmet use: always Drive intox or ride w/intox bookmobile driver: No Working smoke detector in home: Yes Firearms in home: No Do you feel safe at home: Yes Additional Social history: lives alone Time Spent with Patient Time Spent with Patient: 45-69 minutes Time was spent: preparing to see the patient(eg.review tests), ordering m edications,tests, procedures, referring, communicating with other health skin care therapist, indepentently interpreting results, counseling the patient and care coordination
[2024-08-22] MEDS: nitroGLYcerin 0.4 MG TAB SL (13:07)
== END 2024-08-22 13:16 | disposition short-term general hospital (02) | DRG 311 ==
LOC: ER 18:14 → MS 21:49
PROVIDERS: Admitting Provider Internal Medicine; Emergency Provider Emergency Medicine; PCP Family Medicine; Responsible Provider Nurse Practitioner Family; Visit Provider Internal Medicine
DX: I24.9 Acute ischemic heart disease, unspecified (principal); K51.20 Ulcerative (chronic) proctitis without complications; R53.1 Weakness; E78.5 Hyperlipidemia, unspecified; R42 Dizziness and giddiness; G62.9 Polyneuropathy, unspecified; Z79.899 Other long term (current) drug therapy; M81.0 Age-related osteoporosis without current pathological fracture; F32.A Depression, unspecified; K21.9 Gastro-esophageal reflux disease without esophagitis; F43.81 Prolonged grief disorder; D75.89 Other specified diseases of blood and blood-forming organs; A60.00 Herpesviral infection of urogenital system, unspecified; H90.3 Sensorineural hearing loss, bilateral; E66.9 Obesity, unspecified; R60.0 Localized edema; Z80.0 Family history of malignant neoplasm of digestive organs; G47.00 Insomnia, unspecified; Z87.891 Personal history of nicotine dependence; Z68.32 Body mass index [BMI] 32.0-32.9, adult
CPT/HCPCS: 00123; 36415; 71275; 80048; 80053; 80061; 83690; 85027; 93005; 96365; 96366; 96367; 99285; 74174; 81003; 81015; 83036; 83735; 84439; 84443; 84484; 85025; 85610; 85730; 93010; 99222; 99239; J1644; J2305; J3490

== ENCOUNTER 2024-09-01 03:47 | Emergency (ER) | payer BC, MEDICARE, SELFPAY ==
[2024-09-01] VITALS (85 sets, daily range): BP systolic 87–122; BP diastolic 48–79; PULSE 55–83; RESP 8–23; TEMP 36.5; O2SAT 88–99
--- NOTE | 2024-09-01 03:45 | RT.EKG_ITS ---
APPROVED REPORT Exam: Resting ECG Reason for Exam: chest Pain Patient Location: E HR:61 bpm ECG Measurements Heart Rate 61 AXIS VT 122 P 13 QRSd 90 QRS 26 QT 413 T 210 QTc 417 Conclusion Sinus rhythm...normal P axis, V-rate 60- 99 Repol abnrm suggests ischemia, anterolateral...ST dep, T neg, I aVL V2-V6 appropriate intervals no ST segment or T wave abnormalities to suggest occlusive [place]
--- NOTE | 2024-09-01 04:03 | W.ED.GENAD ---
Discharge Plan Discharge Details Chief Complaint: Chest Pain Primary Care Provider: Nadia Stanford ED Provider: Roberta Carey Home Meds and New Rx's Prescriptions: No Action famotidine 20 mg tablet 20 mg PO BID Qty: 180 3RF rosuvastatin 10 mg tablet 10 mg PO DAILY Qty: 90 3RF acyclovir 400 mg tablet 400 mg PO DAILY Qty: 90 3RF alendronate [Fosamax] 70 mg tablet 70 mg PO QWEEK Qty: 13 3RF calcium carb,cit-mag cit,ox-D3 300 mg-150 mg- 400 unit tablet 2 tab PO DAILY Qty: 180 3RF clonazepam 0.5 mg tablet 0.5 mg PO QHS Qty: 30 5RF sertraline 100 mg tablet 100 mg PO DAILY Qty: 90 3RF gabapentin 300 mg capsule 300 mg PO QHS Qty: 30 5RF gabapentin 100 mg capsule 100 mg PO DAILY Qty: 30 2RF atorvastatin 40 mg tablet 40 mg PO QPM aspirin 81 mg Tablet,Chewable 81 mg PO DAILY Qty: 0 0RF HPI General Mode of arrival: ambulatory. Date/Time Provider Initiated Documentation: 09/01/24 04:02. Limitations to Documentation: no limitations. Information obtained by: patient, family and old records reviewed. HPI Narrative: 74yo F presenting for left side pain. Initially described to nursing as left sided chest discomfort radiating to back; on my interview points to LLQ of abdomen and to hip when asked to localize pain. Denies any chest pain, pressure, or discomfort. Woke from sleep at 0130 this morning with this lower abdominal pain, described as severe, dull and wrapping around to her back/hip. Had nausea and has vomited once (non-bloody non-bilious) after trying to vomit hoping it would make her feel better. No constipation or diarrhea, last BM was yesterday and was normal. States she has never had pain like this before. Earlier this month was seen in this ED for chest pain; [place] [facility] [place] concern for unstable angina and patient and family at bedside report full cardiac workup there was normal. She is otherwise in her usual state of health with no fevers, chills, rash, shortness of breath, dysuria, hematuria, numbness, tingling, weakness, or other concerns. Related Data Home Medications ?Medication ?Instructions ?Recorded ?Confirmed acyclovir 400 mg tablet 400 mg PO DAILY #90 tabs 01/13/24 09/01/24 alendronate 70 mg tablet (Fosamax) 70 mg PO QWEEK #13 tabs 01/13/24 09/01/24 calcium 300 mg (carb, 2 tab PO DAILY #180 tabs 01/13/24 09/01/24 citrate)-magnesium 150 mg-vit D3 400 unit tablet famotidine 20 mg tablet 20 mg PO BID #180 tabs 01/13/24 09/01/24 rosuvastatin 10 mg tablet 10 mg PO DAILY #90 tabs 01/13/24 09/01/24 clonazepam 0.5 mg tablet 0.5 mg PO QHS anxiety #30 tabs 06/01/24 09/01/24 aspirin 81 mg chewable tablet 81 mg PO DAILY #0 tabs 08/22/24 09/01/24 atorvastatin 40 mg tablet 40 mg PO QPM 08/27/24 09/01/24 gabapentin 100 mg capsule 100 mg PO DAILY #30 caps 08/29/24 09/01/24 gabapentin 300 mg capsule 300 mg PO QHS #30 caps 08/29/24 09/01/24 sertraline 100 mg tablet 100 mg PO DAILY #90 tabs 08/29/24 09/01/24 Previous Rx's ?Medication ?Instructions ?Recorded acyclovir 400 mg tablet 400 mg PO DAILY #90 tabs 01/13/24 alendronate 70 mg tablet (Fosamax) 70 mg PO QWEEK #13 tabs 01/13/24 calcium 300 mg (carb, 2 tab PO DAILY #180 tabs 01/13/24 citrate)-magnesium 150 mg-vit D3 400 unit tablet famotidine 20 mg tablet 20 mg PO BID #180 tabs 01/13/24 rosuvastatin 10 mg tablet 10 mg PO DAILY #90 tabs 01/13/24 clonazepam 0.5 mg tablet 0.5 mg PO QHS anxiety #30 tabs 06/01/24 aspirin 81 mg chewable tablet 81 mg PO DAILY #0 tabs 08/22/24 gabapentin 100 mg capsule 100 mg PO DAILY #30 caps 08/29/24 gabapentin 300 mg capsule 300 mg PO QHS #30 caps 08/29/24 sertraline 100 mg tablet 100 mg PO DAILY #90 tabs 08/29/24 Allergies Allergy/AdvReac Type Severity Reaction Status Date / Time fentanyl AdvReac Severe NAUSEA/VOMI Verified 09/01/24 04:01 TING General Stated Complaint: Chest Pain LYNSEY: 3 Review of Systems Narrative: see HPI Exam Narrative Exam Narrative: General: Alert, well appearing, well nourished, in no acute distress. Head: Normocephalic, atraumatic Neck: Trachea midline, ?Neck supple. ENT: ?MMM.? No oropharygeal lesions or exudate. Cardiac: ?RRR, no murmurs appreciated Resp: No respiratory distress. CTAB. Abd: ?Soft, non-distended, nontender. : ?No suprapubic tenderness. No CVA tenderness. Extremities: ?No deformities.? No peripheral edema. MSK: Slight reproducible tendernss to palpation of left low lumbar region. No midline tenderness. Neurologic: GCS 15. ? Moves all extremities freely against gravity Course Vital Signs Vital signs: Vital Signs Pulse 62 09/01/24 03:50 Respiratory Rate 14 09/01/24 03:50 Blood Pressure 94/74 L 09/01/24 03:50 Pulse Oximetry 98 09/01/24 03:50 Temperature Source Oral 09/01/24 03:50 Pulse 62 09/01/24 03:50 Respiratory Rate 14 09/01/24 03:57 Respiratory Effort Normal, Non-Labored 09/01/24 03:57 Respiratory Depth Normal 09/01/24 03:57 Respiratory Pattern Normal 09/01/24 03:57 Blood Pressure 94/74 L 09/01/24 03:50 Blood Pressure Position Supine 09/01/24 03:50 Pulse Oximetry 98 09/01/24 03:50 Oxygen Delivery Method Room Air 09/01/24 03:50 Oxygen Flow Rate 0 09/01/24 03:50 Pain Level 8 09/01/24 03:50 Medical Decision Making 74yo F with hx HTN, HLD, and anxiety presenting for left sided pain. Initially described to nursing as left sided chest discomfort radiating to back; on my interview points to LLQ of abdomen and to hip when asked to localize pain and denies any chest discomfort or upper abdominal pain. Pain woke her from sleep around 0130, associated nausea and she vomited x1 intentionally to try to help with symptoms. Vital signs reassuring on arrival. Some reproducible tenderness to left low lumbar region; no abdominal tenderness, does not appear to be in distress. [facility] [place] reviewed; pt admitted on 08/22 and d/guerline home on 08/23 after reassuring echo and SPECT, she was started on a statin. EKG on arrival NSR, appropriate intervals, no ST segment or T wave abnormalities to suggest occlusive SD, no concerning changes from prior 08/21/24. She is a somewhat poor historian; symptoms described to me are not suggestive of cardiac etiology and recent workup at [facility] was reassuring, unlikely ACS but out of abundance of caution will send troponins and BNP. Not overtly septic. Will treat symptoms with IV zofran and tylenol while awaiting result of workup. Patient with difficult venous access, PIV placed but unable to draw labs despite repeated attempts. Given 1L IVFB and re-attempted lab drawn with success. Pain refractory to tylenol; given 2mg of IV morphine. -Labs reviewed as below, CBC with mild leukcytosis at 11 (nonspecific) and no anemia, CMP reassuring with no actionable abnormalities, Mg normal, coags normal, lipase not suggestive of pancreatitis lactate normal (reassuring against mesenteric ischemia), BNP not suggestive of heart failure, initial troponin normal, UA ordered to evaluate for hematuria/pyuria (?nephrolithiasis or pyelonephritis) . Signed out to oncoming physican, plan to followup CXR & CT abd/pelvis as well as UA. Disposition pending results and clinical course. Medical Records Medical records reviewed: Yes I reviewed the patient's medical records. Lab Data Lab results reviewed: Yes I reviewed the patient's lab results. Labs: Laboratory Tests Range/Units 09/01/24 09/01/24 09/01/24 04:04 05:51 06:15 WBC (4.4-10.8) 10^3/uL 11.38 H RBC (3.93-5.22) 10^6/uL 4.09 Hgb (11.2-15.7) g/dL 12.8 Hct (36.0-46.0) % 40.0 MCV (80-95) fL 98 H MCH (27.0-33.0) pg 31.3 MCHC (32.0-36.0) % 32.0 RDW (11.7-14.6) % 12.8 Plt Count (130-400) 10^3/uL 251 MPV (8.0-11.0) fL 10.3 Immature Gran % % 0.4 Neutrophils % % 79.7 Lymphocytes % % 15.6 Monocytes % % 3.7 Eosinophils % % 0.2 Basophils % % 0.4 Nucleated RBC % (0.0-0.3) % 0.0 Absolute Neutrophils (1.2-6.7) 10^3/uL 9.07 H Absolute Lymphocytes (1.2-3.4) 10^3/uL 1.78 Absolute Monocytes (0.1-0.8) 10^3/uL 0.42 Absolute Eosinophils (0.0-0.7) 10^3/uL 0.02 Absolute Basophils (0.0-0.2) 10^3/uL 0.05 PT Cancelled 9.8 INR Cancelled 1.0 APTT Cancelled 22.5 VBG Lactate (<or=2.0) mmol/L 1.2 Sodium Cancelled 144 Potassium Cancelled 4.1 Chloride Cancelled 109 H Carbon Dioxide Cancelled 25.7 Anion Gap Cancelled 9.3 BUN Cancelled 33 H Creatinine Cancelled 1.2 H Est GFR (CKD-EPI 2020) Cancelled 47.80 Glucose Cancelled 132 H Calcium Cancelled 8.7 Magnesium Cancelled 1.9 Total Bilirubin Cancelled 0.3 AST Cancelled 20 ALT Cancelled 34 Alkaline Phosphatase Cancelled 126 H Troponin I Cancelled 6 NT-Pro-B Natriuret Pep Cancelled 29 Total Protein Cancelled 6.9 Albumin Cancelled 3.4 Lipase Cancelled 50 Range/Units 09/01/24 06:24 WBC (4.4-10.8) 10^3/uL RBC (3.93-5.22) 10^6/uL Hgb (11.2-15.7) g/dL Hct (36.0-46.0) % MCV (80-95) fL MCH (27.0-33.0) pg MCHC (32.0-36.0) % RDW (11.7-14.6) % Plt Count (130-400) 10^3/uL MPV (8.0-11.0) fL Immature Gran % % Neutrophils % % Lymphocytes % % Monocytes % % Eosinophils % % Basophils % % Nucleated RBC % (0.0-0.3) % Absolute Neutrophils (1.2-6.7) 10^3/uL Absolute Lymphocytes (1.2-3.4) 10^3/uL Absolute Monocytes (0.1-0.8) 10^3/uL Absolute Eosinophils (0.0-0.7) 10^3/uL Absolute Basophils (0.0-0.2) 10^3/uL PT INR APTT VBG Lactate (<or=2.0) mmol/L Sodium Potassium Chloride Carbon Dioxide Anion Gap BUN Creatinine Est GFR (CKD-EPI 2020) Glucose Calcium Magnesium Total Bilirubin AST ALT Alkaline Phosphatase Troponin I 6 NT-Pro-B Natriuret Pep Total Protein Albumin Lipase Quality:SDOH Health Related Social Needs: Health related social needs daily activities PFSH All Active Problems (Updated 08/29/24 @ 08:07 by Nadia Stanford MD) Headache (Acute) Peripheral neuropathy (Acute) Osteoporosis (Chronic) Hyperlipidemia (Acute) Grief reaction with prolonged bereavement (Acute) Macrocytosis without anemia (Acute) Genital HSV (Chronic) chronic, 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 GERD (gastroesophageal reflux disease) Family history of colon cancer Abnormal glandular Papanicolaou smear of vagina (02/17/06) Polyp of colon Insomnia History of tobacco use quit 2014;12 packyr hx. Family hx-breast malignancy Chronic ulcerative proctitis Surgical History (Updated 08/21/24 @ 23:14 by Kamron Isaac MD) No pertinent past surgical history Family History Mother , 82 Colon cancer Father , 82 Colon cancer Brother Hyperlipidemia Maternal Grandfather Lung cancer Paternal Grandfather Diabetes Maternal Grandmother Essential hypertension Paternal Grandmother Essential hypertension Social History Smoking/Tobacco Use Status: Former Tobacco Use tobacco type: cigarettes Quit Date: 03/21/19 Tobacco: How many years used: 20 Second Hand Exposure: Yes Smoking risk assessment performed?: Yes Alcohol Intake: current Alcohol Intake frequency: a few times a month Alcohol type: beer, wine and hard liquor Drug use: Never Substance use type: does not use Adopted: No Caregiver/Support person: No Foster care: No Household members: family Housing: house Number of Children: 1 number of grandchildren: 1 Communication Needs: None Education Level: high school Do you need help understanding health information?: Rarely 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 Pets and animals: No Sexually active: No Do you think of yourself as: straight/heterosexual Current gender identity: female What is your relationship status?: How often do you get together with friends or relatives?: three or more times per week How often do you attend pentecostal or zoroastrianism services?: decline to answer Do you belong to any clubs or organized social groups?: no Panel score (0-1 are the most socially isolated patients): 1 Duration: 15-30 minutes/day Special deepika needs: No Agree to transfusion: Yes Seatbelt use: always Helmet use: Yes Helmet use: always Drive intox or ride w/intox form setter/driver: No Working smoke detector in home: Yes Firearms in home: No Do you feel safe at home: Yes Additional Social history: lives alone
[2024-09-01] MEDS: Ondansetron 4 MG/2 ML VIAL (04:33)
[2024-09-01] MEDS: ACETAMINOPHEN 1,000 MG/100 ML BAG 400 MG IVPB (04:56)
[2024-09-01] MEDS: Normal Saline 1,000 ML 1000 ML IV (05:08)
--- NOTE | 2024-09-01 05:58 | NUR.NOTE ---
Nursing Note: initial blood draws significantly delayed due to lack of access. Several attempts made by multiple staff including lab staff without success. Diffusics established and labs drawn at 0551
[2024-09-01 06:00] LABS: Abs Immature Grans 0.04 10^3/uL (0.0-0.06); Absolute Eosinophil Count 0.02 10^3/uL (0.0-0.7); Absolute Monocyte Count 0.42 10^3/uL (0.1-0.8); Basophils % 0.4 %; Eosinophils % 0.2 %; HGB 12.8 g/dL (11.2-15.7); Immature Grans % 0.4 %; Lymphocytes % 15.6 %; MCH 31.3 pg (27.0-33.0); MCV 98 fL (80-95); MPV 10.3 fL (8.0-11.0); Monocytes % 3.7 %; Neutrophils % 79.7 %; Platelet Count 251 10^3/uL (130-400); RBC 4.09 10^6/uL (3.93-5.22); RDW 12.8 % (11.7-14.6); RDW-SD 45.8 fL; WBC 11.38 10^3/uL (4.4-10.8)
[2024-09-01 06:01] LABS: Lactate 1.2 mmol/L (<or=2.0)
[2024-09-01 06:02] LABS: Absolute Basophil Count 0.05 10^3/uL (0.0-0.2); Absolute Lymphocyte Count 1.78 10^3/uL (1.2-3.4); Absolute Neutrophil Count 9.07 10^3/uL (1.2-6.7)
[2024-09-01] MEDS: MORPHine 10 MG/ML VIAL 2 MG IVP (06:02)
--- NOTE | 2024-09-01 06:33 | DI.RAD_ITS ---
Exam(s) XR PORTABLE CHEST AP EXAM: XR PORTABLE CHEST AP CLINICAL HISTORY: Chest pain. TECHNIQUE: 2D digital imaging was performed. COMPARISON: CR,XR XR CHEST 2V PA LATERAL from 11/11/2022 FINDINGS: Single AP portable view. Heart size is upper normal. The mediastinum is not widened. Lungs are clear. No infiltrates nor obvious pleural effusions. IMPRESSION: No acute pulmonary findings on this single AP portable view of the chest. DATA REPOSITORY: RADIATION DOSE DELIVERED:
[2024-09-01 06:38] LABS: PTT Activated 22.5 sec (20.6-30.2); Prothrombin Time 9.8 sec (9.1-11.1)
[2024-09-01 06:50] LABS: ALT 34 U/L (14-59); AST 20 U/L (15-37); Albumin 3.4 g/dL (3.4-5.0); Alkaline Phosphatase 126 U/L (46-116); Anion Gap 9.3 mmol/L (3-11); BUN 33 mg/dL (7-18); Bilirubin, Total 0.3 mg/dL (0.2-1.0); CO2 25.7 mmol/L (21.0-32.0); CREATININE 1.2 mg/dL (0.55-1.02); Calcium 8.7 mg/dL (8.5-10.1); Chloride 109 mmol/L (98-107); Glucose 132 mg/dL (74-106); Lipase 50 U/L (<78); Magnesium 1.9 mg/dL (1.8-2.4); NT-proBNP 29 pg/mL (<300); Potassium 4.1 mmol/L (3.5-5.1); Sodium 144 mmol/L (136-145); Total Protein 6.9 g/dL (6.4-8.2); Troponin I 6 ng/L (<or=51)
[2024-09-01 06:54] LABS: Troponin I 6 ng/L (<or=51)
--- NOTE | 2024-09-01 07:01 | DI.VRAD_ITS ---
PROCEDURE INFORMATION: Exam: XR Chest Exam date and time: 09/01/2024 6:30 AM Age: 74 years old Clinical indication: Chest pressure; Chest pain TECHNIQUE: Imaging protocol: Radiologic exam of the chest. Views: 1 view. COMPARISON: CT THORAX ABD/PEL CTA 08/21/2024 3:26 PM FINDINGS: Lungs: Unremarkable. No consolidation. Pleural spaces: Unremarkable. No pleural effusion. No pneumothorax. Heart/Mediastinum: Unremarkable. No cardiomegaly. Bones/joints: Unremarkable. IMPRESSION: No acute findings. Dictated and Authenticated by: Roberta Fallon MD. Orderin Aurelio Granados MD
[2024-09-01] MEDS: Normal Saline - Diluent 50 ML VIAL IJ ×2 (07:23→07:24)
[2024-09-01] MEDS: Omnipaque 350 MG/ML 100 ML BTL 75 ML IJ (07:26)
--- NOTE | 2024-09-01 07:27 | DI.CT_ITS ---
Exam(s) CT ABDOMEN PELVIS W EXAM: CT ABDOMEN PELVIS W CLINICAL HISTORY: severe LLQ pain, N/V. TECHNIQUE: Imaging Protocol: Axial computed tomography images with coronal and sagittal reformatted images were created and reviewed CONTRAST MATERIAL: Intravenous: Omnipaque-350 100cc Oral: None COMPARISON: CT CT THORAX ABD/PEL CTA from 08/21/2024 FINDINGS: VISUALIZED LUNG BASES: There is some infiltrate in both lung bases, specifically in the posterior basal segments of both lower lobes, more so than previous. There are no pleural effusions.. ABDOMEN: There is no ascites. LIVER: There are no focal hepatic lesions evident. No dilated intrahepatic ducts. GALLBLADDER/BILIARY: No obvious gallbladder pathology. CBD is not dilated. PANCREAS: No evidence of pancreatic mass nor dilatation of the pancreatic duct. SPLEEN: Spleen is not enlarged. No obvious intrasplenic lesions. Splenic and portal veins are patent. ADRENALS: There are no significant adrenal masses. KIDNEYS:Right kidney unremarkable. There is again noted in mild left-sided hydronephrosis, slightly increased. The previously described calculus in the proximal left ureter has migrated approximately 2 cm down the ureter, presently at the upper L4 level and measures 6 mm. There is mild enhancement of the left ureter wall at and above the level of calculus. The left ureter below this level is not dilated and there are no other additional calculi in the ureter nor within the nondistended urinary bladder. The left kidney is mildly hydronephrotic. No evidence of obvious bowel nephritis. No additional calculi remaining in the left kidney. ABDOMINAL AORTA: Abdominal aorta is not enlarged. LYMPH NODES:There is no retroperitoneal nor paraaortic adenopathy. ABDOMINAL WALL: No evidence of significant anterior abdominal wall nor inguinal hernia. GI: There is no evidence of bowel obstruction, free air, nor abscess. PELVIS: GI: No evidence of appendicitis.There is sigmoid diverticuli but no evidence of obvious acute diverticulitis. LYMPH NODES: There is no intrapelvic nor inguinal adenopathy. REPRODUCTIVE: Uterus and adnexal regions unremarkable. No free fluid in the pelvis. URINARY BLADDER: No calculi nor obvious masses evident. Bladder size normal without distension. OSSEOUS: No fractures nor osseous lesions. IMPRESSION: 1. Compared to the CT scan of 08/21/2024 the previously described 6 millimeter left-sided UPJ calculus has migrated approximately 2 cm distally in the left ureter and there is hydronephrosis and hydroureter above this level with some enhancement of the left ureter wall above the level the stone. This may be due to inflammation from calculus passes through this level and/or developing infection. The ipsilateral left kidney enhances uniformly without evidence of obvious pyelonephritis nor abscess. 2. Sigmoid diverticulosis again noted but without evidence of acute diverticulitis. 3. There is some infiltrate now developing in the lung bases, more so than previous. There are no pleural effusions. RADIATION DOSE DELIVERED: 548.37mGy.cm Total DLP DATA REPOSITORY: All CT scans at this facility are submitted to the National Radiology Data Registry (NRDR) Dose Index Registry (DIR) with the [employer] (ACR). RADIATION OPTIMIZATION: All CT scans at this facility use at least one of these dose optimization techniques: automated exposure control; mA and/or kV adjustment per patient size (includes targeted exams where dose is matched to clinical indication); or iterative reconstruction.
--- NOTE | 2024-09-01 07:29 | W.EDPROG ---
Date of service: 09/01/24 Time of Service: 07:29 Medical Decision Making I received signout on this 33-year-old female in the emergency department setting of left lower quadrant pain. She had 2 reassuring troponins and a nonischemic ECG not meeting Sgarbossa criteria nor the modified King criteria. She is pending CT scan abdomen and pelvis. She has had some soft blood pressures but these have improved. She had normal lactate. 9:56 AM Patient was found to have left-sided ureterallithiasis with a 6 x 7 mm proximal stone. Pain is controlled. I asked to coordinator Kelly to have the patient seen in follow-up by urology within the next week. 12:39 PM Patient had managed pain in the ED. She tolerated p.o. without nausea or vomiting. She had had multiple soft blood pressures. She notes that she had not eaten in approximately 24 hours. She ate lunch. She passed ambulatory trial. She is a daughter living with her at home. She requests discharge. We discussed that she should return if she develops worsening pain fevers chills nausea or vomiting. She understood her return indications and was discharged with empiric trial of expectant outpatient management. Patient was discharged with a short course of oral morphine. Also wrote her for tamsulosin. Quality:SDOH Health Related Social Needs: Health related social needs daily activities Discharge Plan Disposition Patient Disposition: Home Discharge Details Clinical Impression: Ureterolithiasis, Acute left lower quadrant pain Primary Care Provider: Nadia Stanford ED Provider: Zan Chambers Home Meds and New Rx's Prescriptions: New tamsulosin 0.4 mg capsule 0.4 mg PO DAILY Qty: 14 0RF Continued famotidine 20 mg tablet 20 mg PO BID Qty: 180 3RF rosuvastatin 10 mg tablet 10 mg PO DAILY Qty: 90 3RF acyclovir 400 mg tablet 400 mg PO DAILY Qty: 90 3RF alendronate [Fosamax] 70 mg tablet 70 mg PO QWEEK Qty: 13 3RF calcium carb,cit-mag cit,ox-D3 300 mg-150 mg- 400 unit tablet 2 tab PO DAILY Qty: 180 3RF clonazepam 0.5 mg tablet 0.5 mg PO QHS Qty: 30 5RF sertraline 100 mg tablet 100 mg PO DAILY Qty: 90 3RF gabapentin 300 mg capsule 300 mg PO QHS Qty: 30 5RF gabapentin 100 mg capsule 100 mg PO DAILY Qty: 30 2RF atorvastatin 40 mg tablet 40 mg PO QPM aspirin 81 mg Tablet,Chewable 81 mg PO DAILY Qty: 0 0RF Discharge Instructions Instructions: Kidney Stone Diet Additional Instructions: You are seen in the emergency department for your left lower quadrant pain. You are found to have a kidney stone on the left which measures 7 x 6 mm. This is located just below your kidney. Please drink plenty of water to enable this to pass. Please return to the emergency department if you develop fevers, worsening pain, or have any other concerns. Otherwise otherwise please follow-up with the urologist. For your pain please take medications as follows: 1. Take acetaminophen (Tylenol), 1,000 mg (two 500 mg tabs) every 6 hours You may take these additional stronger medications as needed for pain. Please consider taking a stool softener if you take 1 and 1 of these extra pain pills. Please do not drive or drink alcohol after taking 1 of these pain pills. Referrals: Bandar Davis MD [ [facility] STAFF PHYSICIAN, Urology] Discharge Data Discharge Date/Time-TO BE ENTERED AT DEPARTURE: 09/01/24 12:57
--- NOTE | 2024-09-01 07:36 | DI.VRAD_ITS ---
PROCEDURE INFORMATION: Exam: CT Abdomen And Pelvis With Contrast Exam date and time: 09/01/2024 7:14 AM Age: 74 years old Clinical indication: Abdominal pain; Other: Llq TECHNIQUE: Imaging protocol: Computed tomography of the abdomen and pelvis with contrast. Radiation optimization: All CT scans at this facility use at least one of these dose optimization techniques: automated exposure control; mA and/or kV adjustment per patient size (includes targeted exams where dose is matched to clinical indication); or iterative reconstruction. Contrast material: OMNI 350; Contrast volume: 75 ml; Contrast route: INTRAVENOUS (IV); COMPARISON: CT THORAX ABD/PEL CTA 08/21/2024 3:26 PM FINDINGS: Liver: Normal. No mass. Gallbladder and biliary ducts: Normal. No calcified stones. No ductal dilation. Pancreas: Normal. No ductal dilation. Spleen: Normal. No splenomegaly. Adrenal glands: Normal. No mass. Kidneys and ureters: 7 x 6 mm stone in the left proximal ureter. Mild left hydronephrosis. Right kidney is unremarkable. Stomach and bowel: Normal stomach. Few mildly distended small bowel loops in left upper quadrant which may be related to ileus. No transition zone seen to suggest obstruction. Colonic diverticulosis without diverticulitis. Appendix: Normal appendix. Intraperitoneal space: Unremarkable. No free air. No significant fluid collection. Vasculature: Mild atherosclerotic disease. No aortic aneurysm. Lymph nodes: Unremarkable. No enlarged lymph nodes. Urinary bladder: Unremarkable as visualized. Reproductive: Unremarkable as visualized. Bones/joints: Unremarkable. No acute fracture. Soft tissues: Unremarkable. IMPRESSION: Mild left hydronephrosis and 7 x 6 mm stone in the proximal ureter. Colonic diverticula. Dictated and Authenticated by: Roberta Fallon MD. Orderin Aurelio Granados MD
[2024-09-01] MEDS: MORPHine 4 MG/ML SYR 2 MG IVP (07:40)
[2024-09-01 08:01] LABS: Troponin I 6 ng/L (<or=51)
[2024-09-01] MEDS: Normal Saline 500 ML 1000 ML IV (09:29)
[2024-09-01 10:12] LABS: Bilirubin Negative (Negative); Blood Large (Negative); Clarity Clear (Clear); Glucose Negative (Negative); Ketones Trace mg/dL (Negative); Leukocyte Esterase Trace (Negative); Nitrite Negative (Negative); Specific Gravity 1.015 (1.005-1.025); Urobilinogen 0.2 mg/dL (Up to 0.2)
[2024-09-01 10:25] LABS: Bacteria Negative HPF (Negative); C & S Indicated? No; Casts Negative LPF (Negative); Crystals Few Calcium Oxalate HPF (Negative); Epithelial Cells Many HPF (Negative); Mucus Negative (Negative); Other Cells Few Transitional (Negative); RBC >50 HPF (0-2)
[2024-09-01] MEDS: MORPHine 4 MG/ML SYR (14:30)
== END 2024-09-01 12:57 | disposition home or self-care (01) ==
PROVIDERS: Student in an Organized Health Care Education/Training Program; Emergency Provider Emergency Medicine; PCP Family Medicine
DX: R10.32 Left lower quadrant pain (principal); N13.2 Hydronephrosis with renal and ureteral calculous obstruction; I10 Essential (primary) hypertension; E78.5 Hyperlipidemia, unspecified; Z79.82 Long term (current) use of aspirin; Z87.891 Personal history of nicotine dependence
CPT/HCPCS: 00123; 36415; 80053; 83690; 93005; 96361; 96365; 96375; 99285; 71045; 74177; 81003; 81015; 83605; 83735; 83880; 84484; 85025; 85610; 85730; 93010; J0131; J2270; J2405; J3490

== ENCOUNTER 2024-09-11 02:22 | Outpatient (CLI) | payer BC, MEDICARE, SELFPAY ==
--- NOTE | 2024-09-11 07:00 | DI.RAD_ITS ---
Exam(s) XR CERVICAL SPINE COMP 4-5V EXAM: XR CERVICAL SPINE COMP 4-5V CLINICAL HISTORY: headache, neck pain,r51.9. TECHNIQUE: 2D digital imaging was performed. Five views were performed. COMPARISON: No exams were available for comparison FINDINGS: BONES: No fracture or destructive lesion. Vertebral bodies are unremarkable. There are mild facet degenerative changes throughout. Small endplate osteophytes cause mild encroachment on the left neural foramen. DISKS: Mild narrowing of the C5-6 disc space. The remaining intervertebral disc spaces are maintained. ALIGNMENT: Cervical spinal alignment is within normal limits. The odontoid and atlantoaxial articulations are normal. SOFT TISSUE: Normal. The lung apices are clear. IMPRESSION: Degenerative changes at C5-6 cause mild left neural foraminal narrowing. DATA REPOSITORY: RADIATION DOSE DELIVERED:
--- NOTE | 2024-09-11 07:00 | DI.CT_ITS ---
Exam(s) CT HEAD WO EXAM: CT HEAD WO CLINICAL HISTORY: headache, neck pain,r51.9. TECHNIQUE: Imaging Protocol: Axial computed tomography images with coronal and sagittal reformatted images were created and reviewed COMPARISON: CT CT HEAD FACIAL WO from 11/11/2022 FINDINGS: Ventricles and Extra axial spaces: Normal in size and morphology for the patient's age. Hemorrhage: None. Cerebral parenchyma: No evidence of acute infarct or mass. Stable moderate atrophy. No visible white matter changes. Midline shift: None. Brainstem/Cerebellum: Normal. Calvarium: Normal. Visualized Paranasal sinuses:Clear. Mastoids: Clear. Soft Tissues: Unremarkable. ORBITS: Unremarkable. PITUITARY: Not enlarged. IMPRESSION: No acute intracranial process. RADIATION DOSE DELIVERED: 822.84mGy.cm Total DLP DATA REPOSITORY: All CT scans at this facility are submitted to the National Radiology Data Registry (NRDR) Dose Index Registry (DIR) with the [employer] (A[employer]). RADIATION OPTIMIZATION: All CT scans at this facility use at least one of these dose optimization techniques: automated exposure control; mA and/or kV adjustment per patient size (includes targeted exams where dose is matched to clinical indication); or iterative reconstruction.
== END 2024-09-11 02:42 ==
LOC: DI 02:22
PROVIDERS: PCP Family Medicine; Visit Provider Family Medicine
DX: R51.9 Headache, unspecified (principal); M50.022 Cervical disc disorder at C5-C6 level with myelopathy
CPT/HCPCS: 70450; 72050

== ENCOUNTER 2024-11-29 11:46 | Emergency (ER) | payer BC, MEDICARE, SELFPAY ==
[2024-11-29 11:50] VITALS: BP 128/65; PULSE 82; RESP 18; TEMP 36.5; O2SAT 96
--- NOTE | 2024-11-29 12:45 | DI.RAD_ITS ---
Exam(s) XR FOOT RT COMPLETE EXAM: XR FOOT RT COMPLETE CLINICAL HISTORY: injury to great toe and mtp. TECHNIQUE: 2D digital imaging was performed. COMPARISON: CR,XR XR FOOT RT COMPLETE from 11/11/2022 FINDINGS: 3 views No evidence of acute fracture or diastasis of the Lisfranc joint. Great toe metatarsophalangeal joint appears unremarkable as does the remainder of the great toe. Midfoot articulations appear unremarkable. There is a tiny inferior calcaneal spur. IMPRESSION: No acute osseous findings in the foot. DATA REPOSITORY: RADIATION DOSE DELIVERED:
[2024-11-29 14:30] VITALS: BP 124/76; PULSE 70; RESP 15; O2SAT 95
--- NOTE | 2024-11-29 15:23 | W.ED.GENAD ---
Discharge Plan Disposition Patient Disposition: Home Discharge Details Clinical Impression: Injury of right great toe Primary Care Provider: Nadia Stanford ED Provider: Jess Yusuf Home Meds and New Rx's Prescriptions: Continued famotidine 20 mg tablet 20 mg PO BID Qty: 180 3RF calcium carb,cit-mag cit,ox-D3 300 mg-150 mg- 400 unit tablet 2 tab PO DAILY Qty: 180 3RF sertraline 100 mg tablet 200 mg PO DAILY Qty: 180 3RF clonazepam 0.5 mg tablet 0.5 mg PO BID Qty: 60 5RF gabapentin 300 mg capsule 300 mg PO QHS Qty: 30 5RF isosorbide mononitrate 30 mg tablet extended release 24 hr 30 mg PO DAILY Patient Comments: TAKE ONE TABLET BY MOUTH EVERY DAY atorvastatin 40 mg tablet 40 mg PO QPM Qty: 90 3RF gabapentin 100 mg capsule 100 mg PO DAILY Qty: 30 2RF alendronate [Fosamax] 70 mg tablet 70 mg PO QWEEK Qty: 13 3RF Discharge Instructions Additional Instructions: Take Tylenol and apply Motrin gel as needed over area of tenderness You may use the postop shoe for comfort Please be reevaluated in 1 week with persistent pain weightbearing as tolerated Referrals: Nadia Stanford MD [Primary Care Provider, Medicine] Discharge Data Discharge Date/Time-TO BE ENTERED AT DEPARTURE: 11/29/24 14:30 HPI General Date/Time Provider Initiated Documentation: 11/29/24 11:55. HPI Narrative: This 74-year-old female presents with a right great toe injury. She denies any additional injuries. She stopped her toe and omar taped it last evening secondary to discomfort. Related Data Home Medications ?Medication ?Instructions ?Recorded ?Confirmed calcium 300 mg (carb, 2 tab PO DAILY #180 tabs 01/13/24 11/29/24 citrate)-magnesium 150 mg-vit D3 400 unit tablet famotidine 20 mg tablet 20 mg PO BID #180 tabs 01/13/24 11/29/24 gabapentin 300 mg capsule 300 mg PO QHS #30 caps 08/29/24 11/29/24 clonazepam 0.5 mg tablet 0.5 mg PO BID anxiety #60 tabs 10/17/24 11/29/24 sertraline 100 mg tablet 200 mg (2 x 100 mg) PO DAILY #180 10/17/24 11/29/24 tabs gabapentin 100 mg capsule 100 mg PO DAILY #30 caps 11/20/24 11/29/24 atorvastatin 40 mg tablet 40 mg PO QPM #90 tabs 11/21/24 11/29/24 isosorbide mononitrate 30 mg 30 mg PO DAILY 11/21/24 11/29/24 tablet,extended release 24 hr alendronate 70 mg tablet (Fosamax) 70 mg PO QWEEK #13 tabs 11/29/24 11/29/24 Previous Rx's ?Medication ?Instructions ?Recorded calcium 300 mg (carb, 2 tab PO DAILY #180 tabs 01/13/24 citrate)-magnesium 150 mg-vit D3 400 unit tablet famotidine 20 mg tablet 20 mg PO BID #180 tabs 01/13/24 gabapentin 300 mg capsule 300 mg PO QHS #30 caps 08/29/24 clonazepam 0.5 mg tablet 0.5 mg PO BID anxiety #60 tabs 10/17/24 sertraline 100 mg tablet 200 mg (2 x 100 mg) PO DAILY #180 10/17/24 tabs gabapentin 100 mg capsule 100 mg PO DAILY #30 caps 11/20/24 atorvastatin 40 mg tablet 40 mg PO QPM #90 tabs 11/21/24 alendronate 70 mg tablet (Fosamax) 70 mg PO QWEEK #13 tabs 11/29/24 Allergies Allergy/AdvReac Type Severity Reaction Status Date / Time morphine Allergy Other (See Verified 11/29/24 11:57 Comment) fentanyl AdvReac Severe NAUSEA/VOMI Verified 11/29/24 11:57 TING General Stated Complaint: Orthopedic LYNSEY: 4 Exam Narrative Exam Narrative: Right great toe with bruising at MTP joint and tenderness on toe. Cap refill intact no tenderness to right ankle or right calf. Course Vital Signs Vital signs: Vital Signs Temperature 36.5 C 11/29/24 11:50 Pulse 82 11/29/24 11:50 Respiratory Rate 18 11/29/24 11:50 Blood Pressure 128/65 11/29/24 11:50 Pulse Oximetry 96 11/29/24 11:50 Temperature 36.5 C 11/29/24 11:50 Pulse 70 11/29/24 14:30 Respiratory Rate 15 11/29/24 14:30 Blood Pressure 124/76 11/29/24 14:30 Pulse Oximetry 95 11/29/24 14:30 Pain Level 5 11/29/24 11:50 Medical Decision Making Results: Right great toe without acute abnormality on x-ray per radiology interpretation my review Placed in a postop shoe for comfort return precautions reviewed will use supportive care with Tylenol, rest, and repeat x-ray in 1 week with persistent pain Quality:SDOH Health Related Social Needs: Health related social needs daily activities PFSH All Active Problems (Updated 11/29/24 @ 13:55 by CLEMENTINA Pereira) Injury of right great toe (Acute) Anxiety disorder (Chronic) Peripheral neuropathy (Acute) Osteoporosis (Chronic) Hyperlipidemia (Acute) Grief reaction with prolonged bereavement (Acute) Macrocytosis without anemia (Acute) Genital HSV (Chronic) chronic, 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 GERD (gastroesophageal reflux disease) Family history of colon cancer Abnormal glandular Papanicolaou smear of vagina (02/17/06) Polyp of colon Insomnia History of tobacco use quit 2014;12 packyr hx. Family hx-breast malignancy Chronic ulcerative proctitis Surgical History (Updated 11/21/24 @ 08:49 by Khloe Stockton RN, RN) [place] [facility] [place] pertinent past surgical history Family History Mother , 82 Colon cancer Father , 82 Colon cancer Brother Hyperlipidemia Maternal Grandfather Lung cancer Paternal Grandfather Diabetes Maternal Grandmother Essential hypertension Paternal Grandmother Essential hypertension Social History Smoking/Tobacco Use Status: Former Tobacco Use tobacco type: cigarettes Quit Date: 03/21/19 Tobacco: How many years used: 20 Second Hand Exposure: Yes Smoking risk assessment performed?: Yes Alcohol Intake: current Alcohol Intake frequency: a few times a month Alcohol type: beer, wine and hard liquor Drug use: Never Substance use type: does not use Adopted: No Caregiver/Support person: No Foster care: No Household members: family Housing: house Number of Children: 1 number of grandchildren: 1 Communication Needs: None Education Level: high school Do you need help understanding health information?: Rarely 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 Pets and animals: No Sexually active: No Do you think of yourself as: straight/heterosexual Current gender identity: female What is your relationship status?: How often do you get together with friends or relatives?: three or more times per week How often do you attend moravian or anabaptist services?: decline to answer Do you belong to any clubs or organized social groups?: no Panel score (0-1 are the most socially isolated patients): 1 Duration: 15-30 minutes/day Special deepika needs: No Agree to transfusion: Yes Seatbelt use: always Helmet use: Yes Helmet use: always Drive intox or ride w/intox armor reconnaissance vehicle driver: No Working smoke detector in home: Yes Firearms in home: No Do you feel safe at home: Yes Additional Social history: lives alone
== END 2024-11-29 14:30 | disposition home or self-care (01) ==
PROVIDERS: Emergency Provider Physician Assistant; PCP Family Medicine
DX: S99.921A Unspecified injury of right foot, initial encounter (principal); W01.0XXA Fall on same level from slipping, tripping and stumbling without subsequent striking against object, initial encounter
CPT/HCPCS: 99283; 73630

== ENCOUNTER → 2025-02-06 02:15 | Outpatient (CLI) | payer BC, MEDICARE, SELFPAY ==
--- NOTE | 2025-02-06 07:45 | DI.MAMMO_ITS ---
Exam(s) MAMMO SCREENING EXAM: MAMMO SCREENING CLINICAL HISTORY: screening, Z12.39. TECHNIQUE: Bilateral full field digital CC and MLO mammographic images were obtained with 3D tomosynthesis and utilizing computer aided detection (CAD). COMPARISON: Prior mammograms were reviewed. FINDINGS: No new left breast findings. Anteriorly in the right breast there is an asymmetric density located 3.5 cm in from the nipple, medial of center on the CC view and measuring approximately 5 x 4 mm. This may just represent summation of shadows but this finding was not evident on any of the prior mammograms dating back to 2017. There are no malignant-appearing microcalcification groups in this region nor elsewhere in either breast. There is no significant architectural distortion nor skin thickening-retraction. IMPRESSION: 1. No radiographic evidence of malignancy in left breast. 2. New asymmetric density-possible nodule anteromedially in the right breast. Spot compression CC view and breast ultrasound recommended. BI-RADS Category 0 - Incomplete: Need additional imaging evaluation Breast Density - Category B - There are scattered areas of fibroglandular density. Breast density Category C or D implies that the patient has dense breast tissue. Dense breast tissue can make it harder to find cancer on a mammogram. Dense breast tissue is also associated with an increased risk of breast cancer. This information about the result of the mammogram report was provided to the patient to raise their awareness. Use this report when you speak with the patient about their risks for breast cancer, which includes their family history. At that time, you may recommend additional screening tests (Ultrasound or MRI) as these tests may add significant information. A negative radiographic report should not delay biopsy if a dominant or clinically suspicious mass is present. Up to ten percent of cancers are not identified on mammography. A negative report may reinforce clinical impression. Adenosis and dense breasts may obscure an underlying neoplasm. False positive reports average 6 to 10%. Patient will receive a letter notifying them of these results.
== END ==
LOC: DI 02:15
PROVIDERS: PCP Family Medicine; Visit Provider Family Medicine
DX: Z12.31 Encounter for screening mammogram for malignant neoplasm of breast (principal)
CPT/HCPCS: 77063; 77067

== ENCOUNTER → 2025-02-08 02:46 | Outpatient (CLI) | payer BC, MEDICARE, SELFPAY ==
--- NOTE | 2025-02-08 09:48 | DI.MAMMO_ITS ---
Exam(s) MAMMO SCREEN CALL BACK UNI EXAM: MAMMO SCREEN CALL BACK UNI CLINICAL HISTORY: F/U ABNL MAMMO, R92.8,RT ASYMMETRIC DENSITY,? NODULE TECHNIQUE: Spot compression views with tomographic imaging were performed. COMPARISON: Recent exam of 06 February 2025 and exams back to 2016 FINDINGS: No suspicious masses or suspicious microcalcifications are seen. No persistent abnormality is seen on the additional views performed. The findings are consistent with overlying fibroglandular tissue. There has been no significant change from prior exams. IMPRESSION: BI-RADS Category 1, Negative Yearly screening mammography is recommended. Breast Density - Category B - There are scattered areas of fibroglandular density. Breast density Category C or D implies that the patient has dense breast tissue. Dense breast tissue can make it harder to find cancer on a mammogram. Dense breast tissue is also associated with an increased risk of breast cancer. This information about the result of the mammogram report was provided to the patient to raise their awareness. Use this report when you speak with the patient about their risks for breast cancer, which includes their family history. At that time, you may recommend additional screening tests (Ultrasound or MRI) as these tests may add significant information. A negative radiographic report should not delay biopsy if a dominant or clinically suspicious mass is present. Up to ten percent of cancers are not identified on mammography. A negative report may reinforce clinical impression. Adenosis and dense breasts may obscure an underlying neoplasm. False positive reports average 6 to 10%. Patient will receive a letter notifying them of these results.
== END ==
LOC: DI 02:46
PROVIDERS: PCP Family Medicine; Visit Provider Family Medicine
DX: Z12.31 Encounter for screening mammogram for malignant neoplasm of breast (principal); R92.8 Other abnormal and inconclusive findings on diagnostic imaging of breast
CPT/HCPCS: 77063; 77067